=== PATIENT | male | born 1930 | race Caucasian/White ===

== ENCOUNTER 2017-01-28 08:43 | Outpatient (CLI) | payer MEDICARE ==
--- NOTE | 2017-01-28 09:36 | RAD ---
CHEST: Date: 01/28/17 COMPARISON: 07/22/16. HISTORY: Dyspnea. FINDINGS: Normal sized cardiomediastinal silhouette. Patient is status post CABG. Pacemaker is unchanged in po sition. No evidence of consolidation, mass, or pleural effusion. IMPRESSION: No evidence of acute cardiopulmonary disease. POS: H
== END 2017-01-28 08:44 | disposition home or self-care (01) ==
LOC: RAD 08:43
PROVIDERS: ATTEND Internal Medicine Critical Care Medicine
DX: R06.00 Dyspnea, unspecified (principal)
CPT/HCPCS: 71020

== ENCOUNTER 2017-06-09 13:23 | Inpatient (IN) | payer MEDICARE ==
[2017-06-09 14:08] LABS: #Basophils 0.1 thou/uL (0.0-0.2); #Eosinphils 0.1 thou/uL (0.0-0.7); #Lymphocytes 2.8 thou/uL (1.20-3.40); #Monocytes 0.7 thou/uL (0.11-0.59); #Neutrophils 4.4 thou/uL (1.40-6.50); %Basophils 0.9 % (0.0-1.0); %Eosinophils 1.3 % (0.0-10.0); %Lymphocytes 34.8 % (21.0-51.0); %Monocytes 8.1 % (0.0-10.0); %Neutrophils 54.9 % (42.0-75.0); Hemoglobin 12.4 g/dL (14.0-18.0); Mean Corpuscular HGB CONC 33.9 g/dL (32.0-36.0); Mean Corpuscular Hemoglobin 33.3 pg (27.0-31.0); Mean Corpuscular Volume 98.4 fl (80.0-94.0); Mean Platelet Volume 6.4 fL (7.4-10.4); Platelet Count 197 thou/uL (130-400); RBC Distribution Width 13.4 % (11.5-14.5); Red Blood Cell (RBC) Count 3.73 mill/uL (4.70-6.10)
[2017-06-09 14:40] LABS: ALT (SGPT) 9 U/L (8-55); AST (SGOT) 23 U/L (5-34); Albumin 4.2 g/dL (3.4-4.8); Alkaline Phosphatase 125 U/L (40-150); Anion Gap 16 mmol/L (10-20); BUN (Urea Nitrogen) 23 mg/dL (8.4-25.7); Bilirubin, Total 0.7 mg/dL (0.2-1.2); Calc. Creatinine Clearance 0 mL/min (70-130); Calcium 9.8 mg/dL (7.8-10.44); Carbon Dioxide 24 mmol/L (23-31); Chloride 94 mmol/L (98-107); Estimated GFR-MDRD 56; Globulin 3.2 g/dL (2.4-3.5); Glucose 99 mg/dL (83-110); Potassium 4.2 mmol/L (3.5-5.1); Protein, Total 7.4 g/dL (5.8-8.1); Sodium 130 mmol/L (136-145)
[2017-06-09 14:45] LABS: CKMB 3.3 ng/mL (0-6.6); Troponin I Less than 0.010 ng/mL (< 0.028)
[2017-06-09 16:55] VITALS: BMI 21.2
[2017-06-09] MEDS ORDERED: Famotidine 20 MG TAB PO SCH (23:45)
[2017-06-10 05:37] LABS: Hemoglobin 11.4 g/dL (14.0-18.0)
[2017-06-10 05:57] LABS: Anion Gap 12 mmol/L (10-20); BUN (Urea Nitrogen) 18 mg/dL (8.4-25.7); Calc. Creatinine Clearance 46 mL/min (70-130); Carbon Dioxide 23 mmol/L (23-31); Chloride 102 mmol/L (98-107); Estimated GFR-MDRD 66; Glucose 93 mg/dL (83-110); Potassium 3.8 mmol/L (3.5-5.1); Sodium 133 mmol/L (136-145)
--- NOTE | 2017-06-10 06:23 | CON ---
DATE OF CONSULTATION: 06/09/2017 REFERRING PHYSICIAN: Dr. Sami Rutledge. REASON FOR CONSULTATION: Dyspepsia, indigestion, nausea, weakness, and also history of dark stool. HISTORY OF PRESENT ILLNESS: Mr. Brennon Bustos is a very pleasant 86-year-old male who is known to me from before. The patient had seen me in 2016 and he has also history of anemia, black tarry stool. He was on Eliquis at that time. At that time, his blood count was very low at 5.9, hematocrit 19. He was transfused. 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 He had a colonoscopy that revealed diffuse chronic diverticular disease without any bleeding. It was felt the bleeding is most likely from upper gastrointestinal tract and is having actual bleeding at that time. The patient has done very well for the last couple of years. The patient is on Eliquis twice a day and also on aspirin over the last few months. The patient felt sick to stomach and did not feel good for the last 3 days. He also felt sick to stomach. He had some nausea, indigestion, and also some labored breathing. He went to see Dr. Sami Rutledge today. A rectal exam done in Dr. Rutledge's office showed dark stool and the stool guaiac came back positive. He was advised to come to the ER. He has CBC done in the ER, the CBC shows mild anemia. The hemoglobin today is 12.4. The patient had no stool today and he had one stool yesterday and stool was darker than usual. It was not black and tarry. The patient had no stool today. The patient has no chest pain, no dyspnea, orthopnea, PND. He has had no other relevant symptoms. ALLERGIES: CIPRO. SOCIAL HISTORY: He is a past smoker. He smoked in 1992. He drinks alcohol occasionally, maybe once or twice a month. MEDICAL ILLNESSES: 1. Myocardial infarction in 1982. 2. Status post coronary artery bypass graft. 3. Chronic obstructive pulmonary disease. 4. Hyperlipidemia. 5. Atrial fibrillation, status post AICD placed. 6. 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 7. Bleeding AVM stomach in 2016. SURGERIES: 1. Status post coronary artery bypass graft in 1992. 2. Status post AICD placement in 2006. 3. Bilateral hernia repair. 4. Status post AAA repair in 2016, after EGD and colonoscopy in 2016. MEDICATIONS: List reviewed. He is on Eliquis, aspirin, Zetia, lisinopril, Coreg, potassium citrate, furosemide, atorvastatin. REVIEW OF SYSTEMS: Remarkable for dyspepsia, some upset stomach, nausea, indigestion and not feeling good and also had some black stool. Otherwise, system review is unremarkable. PHYSICAL EXAMINATION: GENERAL: Very pleasant male who appears comfortable. He is awake, alert, oriented to time, place, and person. VITAL SIGNS: Stable. He is afebrile, temperature 97.3 degrees Fahrenheit. Pulse is 80, blood pressure 119/59. HEENT: Conjunctivae clear. NECK: Supple. No adenitis or thyromegaly noted. CARDIOVASCULAR: First and second heart sounds normal. LUNGS: Clear to auscultation. ABDOMEN: Soft to palpate. Abdomen is nontender. Abdomen is nondistended. There are no organomegaly or masses. Bowel sounds normal. EXTREMITIES: Reveal no edema. LABORATORY: Shows WBC 8000, hemoglobin 12.4, hematocrit 36.7, MCV 98.4, platelet count 197,000, polymorphs 54, lymphocytes 34. Serum chemistries show sodium 130, potassium 4.2, chloride 94, bicarbonate 24, BUN is 23, creatinine is 1.22, glucose is 99, calcium 9.8, bilirubin 0.7. AST 23, ALT 9, alkaline phosphatase 125. CPK 3.3, troponin less than 0.01. His total protein is 7.4, albumin 4.2, globulin 3.2. CLINICAL IMPRESSION: An 86-year-old male with history of dark stool and also feeling upset stomach, indigestion, nausea etc. The patient had similar episodes in 2016 was found to have bleeding gastric AVM. He had a colonoscopy, which was negative for any pathology except for diffuse colonic diverticular disease. The patient had no stool today and the stool was dark in Dr Rutledge's office. Based on available information, he mostly has some bleeding which appears to be mild as blood count is near normal at 12.4. RECOMMENDATIONS: 1. Empiric PPI therapy. 2. We will plan for EGD tomorrow or possibly Wednesday, because he is on Eliquis. 3. We will follow the electrolytes and hopefully we can perform EGD probably today or tomorrow. In the meantime, we would recommend serial H&H, MTDD
--- NOTE | 2017-06-10 09:18 | HP ---
DATE OF ADMISSION: 06/09/2017 CHIEF COMPLAINT: Abdominal pain, nausea, lightheadedness. HISTORY OF PRESENT ILLNESS: This is an 86-year-old gentleman with a history of a GI bleed in 2016 se condary to AVM and anticoagulation, history of coronary artery disease status post coronary bypass gr aft, history of atrial fibrillation, history of pulmonary fibrosis, history of aneurysms presented to my office on the day of admission with complaints of nausea, upset stomach and dizziness. He was ev aluated in the office, he was not hypotensive or tachycardic, but did look uncomfortable. Due to his history of his GI bleed, stool guaiac test was done, which was positive for blood and was sent to [facility] emergency department for further evaluation. He was not significantly anemic as he was in 2016, wa s seen by Dr. Moore who agreed with admission and planned endoscopy. PAST MEDICAL HISTORY: 1. History of [place] in 1982. 2. History of coronary bypass graft in 1992. 3. COPD and pulmonary fibrosis, followed by Dr. Ross. 4. Paroxysmal atrial fibrillation, followed by Dr. Layne. 5. Hyperlipidemia. 6. Ischemic cardiomyopathy. 7. Status post ICD placement. 8. Status post aortic aneurysm repair. 9. History of thoracic aneurysm. 10. History of chronic renal failure. PAST SURGICAL HISTORY: Includes ICD placement, aortic aneurysm repair, EGD and colonoscopy in 2016, coronary bypass graft, inguinal hernia repair x2. MEDICATIONS: See chart for review. He has been on Eliquis daily and recently started back on low do se aspirin by Cardiology, carvedilol 3.125 mg daily, atorvastatin 80 mg daily, and furosemide as need ed. SOCIAL HISTORY: No alcohol. Quit smoking many years ago. Lives at home alone with family nearby. REVIEW OF SYSTEMS: As per the history of present illness. GENERAL: He denies any recent fevers or chills. He does have increased weakness and some dizziness. HEENT: No falls. CARDIAC: No chest pain, shortness of breath or palpitations. PULMONARY: Occasional shortness of breath with dyspnea on exertion. GASTROINTESTINAL: Positive upset stomach. No melena or hematochezia. GENITOURINARY: No dysuria or hematuria. NEUROLOGIC: Some dizziness, no falls, no seizures. PHYSICAL EXAMINATION: VITAL SIGNS: Temperature 98.4, pulse of 71, respirations 18, blood pressure 123/57, pulse ox 93%-94% on room air. GENERAL: He is awake and alert in no acute distress. Speech is clear. Mucosa is moist. NECK: Supple. HEART: Regular rate and rhythm with a 2/6 systolic ejection murmur. LUNGS: Decreased breath sounds, but no wheeze, rales or rhonchi. ABDOMEN: Positive bowel sounds, soft, some epigastric tenderness, but no rebound or guarding. No he patosplenomegaly. EXTREMITIES: No clubbing, cyanosis or edema, 2+ peripheral pulses bilaterally. NEUROLOGIC: Cranial nerves II-XII are grossly intact. LABORATORY DATA: Sodium 133, potassium 3.8, chloride 102, CO2 of 23, BUN and creatinine 18 and 1.06. Serum glucose of 93. AST and ALT are normal. Cardiac enzymes are negative. White blood cell coun t 8.0 thousand, hemoglobin and hematocrit 12.14/36.7 yesterday and 11.4 and 33.6 today, platelets of 197. ASSESSMENT: This is an 86-year-old gentleman with multiple medical problems as described above, now with lightheadedness, guaiac-positive stool with a history of gastrointestinal bleed one and a half y ears ago. PLAN: 1. Agree with admission. Continue proton pump inhibitors. Dr. Moore planning at least an EGD h opefully today. If the patient remains stable, possibly discharge later on today or tomorrow if his hemoglobin hematocrit remained stable. 2. Coronary artery disease, ischemic cardiomyopathy. We will continue his medicines, hold his antic oagulation until cleared by Dr. Moore. We will likely have to stop the aspirin and continue the Eliquis if okay with Dr. Layne. 3. Hypertension is stable. We will hold his antihypertensives at this time. 4. Chronic obstructive pulmonary disease, pulmonary fibrosis is stable as well.
[2017-06-10] MEDS: Famotidine 20 MG TAB PO SCH ×2 (10:00→20:18)
[2017-06-11 05:09] LABS: Hemoglobin 11.2 g/dL (14.0-18.0)
[2017-06-11] MEDS ORDERED: PHENYLEPHRINE-NS 100 MCG/ML 10 ML SYRINGE ONE ×2 (07:59→08:31)
[2017-06-11 08:31] VITALS: BP 106/53; TEMP 96.7
[2017-06-11] MEDS ORDERED: Lidocaine 1% PF 5 ML VIAL ONE (08:31)
[2017-06-11] MEDS ORDERED: PROPOFOL 200 MG/20 ML VIAL ONE (08:31)
--- NOTE | 2017-06-11 08:43 | OP ---
DATE OF PROCEDURE: 06/11/2017 SURGEON: Hilda Moore M.D. OPERATIVE PROCEDURE: 1. Esophagogastroduodenoscopy. 2. 7 Norwegian heater probe therapy of gastric arteriovenous malformation. PREOPERATIVE DIAGNOSES: 1. Melena, anemia due to blood loss. 2. Past history of gastrointestinal bleeding in 2016. PROCEDURE IN DETAIL: The patient was placed on his left lateral position and was given sedation by A nesthesia Department. A Pentax video gastroscope under direct vision was passed down the oropharynx, past the GE junction, into stomach and subsequently descending duodenum. The esophageal mucosa appe ars normal. The GE junction, no pathology seen. Retroflexion failed to show in the fundus or cardia . Over the gastric body the patient was found to have some gastric AVM. It was found bleeding. In the gastric body, incisura angularis, gastric antrum, no pathology seen. The scope advanced into the duodenal bulb, descending duodenum. No pathology seen. The scope was carefully withdrawn back into stomach and the gastric AVM cauterized with 7 Norwegian heater probe with good hemostasis. The stomach was decompressed and the scope removed. RECOMMENDATIONS: 1. Discontinue n.p.o. 1. Heart healthy diet. 2. May be discharged home later today.
[2017-06-11] MEDS: Famotidine 20 MG TAB PO SCH (09:02)
--- NOTE | 2017-06-12 13:25 | EKG ---
Test Reason : Blood Pressure : / mmHG Vent. Rate : 075 BPM Atrial Rate : 086 BPM P-R Int : 000 ms QRS Dur : 156 ms QT Int : 412 ms P-R-T Axes : 068 -28 099 degrees QTc Int : 460 ms Ventricular-paced rhythm Abnormal ECG Confirmed by JU SUAREZ MD ([id number]), makeup editor ABBI SHIPLEY ([id number]) on 06/12/2017 1:25:13 PM Referred By: Confirmed By:JU SUAREZ MD
--- NOTE | 2017-06-14 12:46 | DIS ---
DATE OF ADMISSION: 06/10/2017 DATE OF DISCHARGE: 06/11/2017 ADMISSION DIAGNOSES: Rule out gastrointestinal bleed, lightheadedness, guaiac positive stool. DISCHARGE DIAGNOSES: Anemia, dizziness, resolved. CONSULTATIONS: Dr. Moore for GI. PROCEDURES: Upper endoscopy and heater probe therapy to gastric AVM. HOSPITAL COURSE: This is an 87-year-old gentleman with a history of GI bleed in 2016 secondary to an AVM and on anticoagulation. He has a history of coronary artery disease status post coronary artery bypass graft, history of atrial fibrillation, history of pulmonary fibrosis, and history of aneurysm s. He presented to my office with complaints of nausea, upset stomach and dizziness. In the office, he was not hypotensive, but did look uncomfortable due to his history of a GI bleed, a stool guaiac was done, which was positive for blood. He was sent to the emergency department for further evaluati on. On admission, he was not significantly anemic with a hemoglobin and hematocrit of 12 and 36.7 it did drop to 11.4 and 33.6 during his hospitalization. His symptoms improved slightly with IV fluid rehydration. He was seen by Dr. Moore in evaluation and agreed with his need for an upper endosc opy due to the melena and positive stool guaiac. It was discussed with the patient, he agreed with p erforming the EGD. He is continued on proton pump inhibitors. Due to the patient being on Eliquis, the endoscopy was planned for the following day. The patient underwent the endoscopy without complic ations, tolerated, being off the Eliquis for a day. The EGD did reveal a gastric AVM which was treat ed by Dr. Moore with cauterization with good hemostasis. The patient tolerated the procedure and Dr. Moore felt like the patient could be discharged home the following day following recovery. DISCHARGE MEDICATIONS: Include potassium citrate 10 mEq daily, atorvastatin 80 mg daily, Tylenol p.r .n., furosemide 40 mg daily, carvedilol 3.125 mg b.i.d., Eliquis once daily, Zetia 10 mg daily, lisin opril 2.5 mg daily. He is to restart the aspirin when okay with Dr. Moore. DISCHARGE PHYSICAL EXAMINATION: VITAL SIGNS: Temperature 96.7, pulse is 63, respirations 20, blood pressure 106/53, pulse oximetry i s 95% on room air. GENERAL: He is awake and alert, in no acute distress. Speech is clear. NECK: Supple. HEART: Regular rate and rhythm. LUNGS: Clear. ABDOMEN: Soft. EXTREMITIES: With no edema. DISCHARGE LABORATORY DATA: Hemoglobin and hematocrit 11.2 and 32.4. FOLLOWUP INSTRUCTIONS: The patient to follow up in my office in 1-2 weeks. Follow up with Dr. Emi berg in 2 weeks and with his ell teacher in 2-4 weeks.
--- NOTE | 2017-06-18 16:11 | PQF ---
JOSE SOMMER KUPPUSAMY MD [id number] [facility] [id number] CLINICAL DOCUMENTATION CLARIFICATION FORM: POST DISCHARGE Addendum to original discharge summary date: ____ Late entry note date: __ DATE: 06/15/17 ATTN: DR GARCIA Please exercise your independent, professional judgment in responding to the clarification form. Clinical indicators are provided on the bottom of this form for your review Please check appropriate box(s): [ ] Acute blood loss anemia [ ] Post-op anemia related to acute blood loss [ ] Anemia: [ ] Aplastic [ ] Nutritional [ ] Drug induced (specify) ___ [ ] Hemolytic [ ] Hereditary [ ] Acquired [ ] Autoimmune [ ] Non-autoimmune [ ] Enzyme disorder [ ] Chronic Anemia: [ ] Blood loss [ ] Hemolytic [ ] Simple [ ] Due to Vitamin B12 Deficiency [ ] Other [ ] Anemia of Chronic Disease (please specify) [ ] Anemia due to Neoplasm: [ ] Primary [ ] Secondary [ ] Anemia due to (please choose): [ ] Due to Chemotherapy [ ] Due to Radiotherapy [ ] Due to Immunotherapy [ ] Other diagnosis [ ] Unable to determine In addition, please specify: Present on Admission (POA): [ ] Yes [ ] No [ ] Unable to determine For continuity of documentation, please document condition throughout progress notes and discharge summary. Thank You. CLINICAL INDICATORS - SIGNS / SYMPTOMS / LABS Anemia dark stool nausea. vomiting RISK FACTORS Surgery AVM Melena/Hematochezia Documented anemia due to blood loss. ALONDRAD
== END 2017-06-11 11:08 | disposition home or self-care (01) | DRG 379 ==
LOC: ERS 13:23 → 2SW 14:15 → OBSVTOIN 06-10 21:29
PROVIDERS: ADMIT Family Medicine; ATTEND Family Medicine
PROC: 0W3P8ZZ Control Bleeding in Gastrointestinal Tract, Via Natural or Artificial Opening Endoscopic (ICD-10-PCS; principal; 2017-06-11)
DX: K55.21 Angiodysplasia of colon with hemorrhage (principal); I48.0 Paroxysmal atrial fibrillation; J84.10 Pulmonary fibrosis, unspecified; J44.9 Chronic obstructive pulmonary disease, unspecified; Z95.1 Presence of aortocoronary bypass graft; I25.10 Atherosclerotic heart disease of native coronary artery without angina pectoris; Z79.01 Long term (current) use of anticoagulants; I25.2 Old myocardial infarction; E78.5 Hyperlipidemia, unspecified; I25.5 Ischemic cardiomyopathy; Z95.810 Presence of automatic (implantable) cardiac defibrillator; Z79.82 Long term (current) use of aspirin; Z87.891 Personal history of nicotine dependence; I10 Essential (primary) hypertension; K57.30 Diverticulosis of large intestine without perforation or abscess without bleeding; Z88.1 Allergy status to other antibiotic agents
CPT/HCPCS: 36415; 80048; 80053; 82274; 82553; 84484; 85014; 85018; 85025; 93005; 99214; G0463; J2001; J2704

== ENCOUNTER 2017-07-28 09:21 | Outpatient (CLI) | payer MEDICARE ==
--- NOTE | 2017-07-28 11:41 | RAD ---
RADIOGRAPH CHEST 2 VIEWS: Date: 07-28-17 Time: 9:28 a.m. HISTORY: 87-year-old male with dyspnea. COMPARISON: 04-30-16 FINDINGS: Sternotomy wires. Surgical clips along the left mediastinal and left cardiac border. Left subclavian AICD. Hypoinflation of lungs. Diffuse reticular nodular interstitial densities, chronic. No consolida tion, pulmonary vascular engorgement, pulmonary edema, pleural effusion or pneumothorax. No interval change overall. Colonic interposition. IMPRESSION: 1. Hypoinflation and chronic interstitial changes. 2. Status post coronary artery bypass graft surgery is evidence for coronary atherosclerotic disease. ICD-10: I25.10 3. Automatic implantable cardioverter/defibrillator. 4. No acute findings. LENORE POS: [place]
== END 2017-07-28 09:22 | disposition home or self-care (01) ==
LOC: RAD 09:21
PROVIDERS: ATTEND Internal Medicine Critical Care Medicine
DX: R06.00 Dyspnea, unspecified (principal); J98.4 Other disorders of lung; I25.10 Atherosclerotic heart disease of native coronary artery without angina pectoris; Z95.1 Presence of aortocoronary bypass graft; Z95.810 Presence of automatic (implantable) cardiac defibrillator
CPT/HCPCS: 71046

== ENCOUNTER 2017-12-07 16:27 | Inpatient (IN) | payer MEDICARE ==
[2017-12-07 17:18] LABS: #Eosinphils 0.1 thou/uL (0.0-0.7); #Lymphocytes 1.3 thou/uL (1.20-3.40); #Monocytes 0.8 thou/uL (0.11-0.59); %Basophils 0.2 % (0.0-1.0); %Lymphocytes 18.1 % (21.0-51.0); %Monocytes 10.7 % (0.0-10.0); Hemoglobin 8.4 g/dL (14.0-18.0); Mean Corpuscular Hemoglobin 29.1 pg (27.0-31.0); Mean Corpuscular Volume 85.5 fL (78.0-98.0); Mean Platelet Volume 6.5 fL (7.4-10.4); Platelet Count 205 thou/uL (130-400); RBC Distribution Width 15.7 % (11.5-14.5); Red Blood Cell (RBC) Count 2.87 mill/uL (4.70-6.10); White Blood Cell (WBC) Count 7.2 thou/uL (4.8-10.8)
[2017-12-07 17:24] LABS: INR-International Normal Ratio 1.1; Prothrombin Time 14.5 SEC (12.0-14.7)
[2017-12-07 17:40] LABS: ALT (SGPT) 7 U/L (8-55); AST (SGOT) 18 U/L (5-34); Albumin 3.9 g/dL (3.4-4.8); Alkaline Phosphatase 136 U/L (40-150); Anion Gap 13 mmol/L (10-20); BUN (Urea Nitrogen) 36 mg/dL (8.4-25.7); Bilirubin, Total 0.6 mg/dL (0.2-1.2); Calc. Creatinine Clearance 0 mL/min (70-130); Calcium 9.4 mg/dL (7.8-10.44); Carbon Dioxide 21 mmol/L (23-31); Chloride 95 mmol/L (98-107); Estimated GFR-MDRD 35; Globulin 3.2 g/dL (2.4-3.5); Glucose 102 mg/dL (83-110); Potassium 4.2 mmol/L (3.5-5.1); Protein, Total 7.1 g/dL (5.8-8.1); Sodium 125 mmol/L (136-145)
[2017-12-07 21:01] LABS: Hemoglobin 8.8 g/dL (14.0-18.0)
[2017-12-07] MEDS ORDERED: Carvedilol 6.25 MG TAB PO SCH (22:15)
[2017-12-07] MEDS ORDERED: Ondansetron HCl/PF 4 MG/2 ML Vial IVP PRN (22:50)
[2017-12-07] MEDS ORDERED: Ondansetron ODT 4 MG TAB SL PRN (22:50)
[2017-12-07 22:56] VITALS: BMI 20.1
[2017-12-08 06:24] LABS: Hemoglobin 7.9 g/dL (14.0-18.0)
[2017-12-08] MEDS: Furosemide 20 MG/2 ML VIAL SLOW IVP SCH ×2 (13:15→16:45)
[2017-12-08] MEDS: Atorvastatin Calcium 40 MG TAB PO SCH (20:23)
[2017-12-08] MEDS: Carvedilol 3.125 MG TAB PO SCH (20:24)
--- NOTE | 2017-12-09 05:26 | CON ---
DATE OF CONSULTATION: 12/08/2017 REASON FOR CONSULTATION: Possible melena, history of upper GI bleeding. CONSULTING PHYSICIAN: Mark Keane M.D. 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 He states that he was in his usual state of health until approximately 5-7 days ago when he began to have increased shortness of breath, fatigue, and weakness that he had experienced previously upon episodes of GI bleeding. Recognizing these symptoms as possible GI bleeding he was seen by his primary care physician with routine labs showing a significant drop in his H &H when compared to baseline. He also endorses that over the last week he did have darker brown stools than usual, but denies any overtly black or diarrhea- like bowel movements. He usually has approximately 3-4 semi-solid to solid bowel movements per day, but over the last 3-4 days had been having approximately one semi-solid bowel movement per day, which was a change in his bowel habits. With this increased shortness of breath and darker colored stools , he did have an associated loss of appetite and has lost approximately 5 pounds over the last 1-2 months. Currently, he denies any vomiting, fevers, chills, abdominal pain, hematemesis, hematochezia, dysphagia, or odynophagia. Of note, he had similar symptoms 2 years ago and was evaluated with an EGD for possible upper GI bleed with arteriovenous malformation seen in his stomach that were treated with cauterization with good hemostasis achieved. His last upper endoscopy was in 06/2017, which also showed arteriovenous malformations within the gastric body further contributing to his anemia that were cauterized with bipolar cauterization. REVIEW OF SYSTEMS: A 10-category review of systems was obtained with all responses negative except for the pertinent positives as listed in the HPI. PAST MEDICAL HISTORY: As per HPI. PAST SURGICAL HISTORY: Coronary artery bypass graft in 1992, status post AICD placement in 2006, bilateral hernia repair and AAA repair in 2016. SOCIAL HISTORY: Denies any tobacco or illicit drug use. Does drink approximately 1-2 beers maybe once or twice a month. OUTPATIENT MEDICATIONS: Reviewed and is currently taking both aspirin and Eliquis for his atrial fibrillation. ALLERGIES: CIPRO. PHYSICAL EXAMINATION: VITAL SIGNS: Temperature 98.5, pulse 92, blood pressure 114/59, respiratory rate 20, satting 94% on room air. GENERAL: The patient is lying in bed in no acute distress. Alert and oriented x4. HEENT: Neck supple. No JVD noted. CARDIOVASCULAR: Irregularly irregular rhythm with no discernible murmurs, gallops or rubs. LUNGS: Clear to auscultation bilaterally with no discernible wheezes or rales. ABDOMEN: Normoactive bowel sounds, soft, nontender, nondistended. EXTREMITIES: No cyanosis, clubbing or edema. LABORATORY DATA: CBC with a white blood cell count of 7.2, hemoglobin 7.9, hematocrit 23.8, platelets 205. INR 1.1. Chemistry with a sodium of 125, potassium 4.2, chloride 95, CO2 of 21, BUN 36, creatinine 1.86, glucose 102, AST 18, ALT 7, alkaline phosphatase 136, total bilirubin 0.6. IMAGING DATA: No current GI imaging is available for review. ASSESSMENT AND PLAN: The patient is an 87-year-old male with past medical history of myocardial infarction, coronary artery disease, congestive heart failure, abdominal aortic aneurysm status post repair, atrial fibrillation on anticoagulation with Eliquis and aspirin and recurrent gastrointestinal bleeds secondary to arteriovenous malformations presenting with increased fatigue, shortness of breath, decreased H&H and darker colored stools concerning for an upper gastrointestinal bleed. Upper gastrointestinal bleed. The patient is presenting with increased shortness of breath, fatigue, weakness, and darker colored stools that were previously documented during episodes of upper gastrointestinal bleeding in the past. His most recent upper endoscopy was approximately 6 months ago performed by Dr. Moore, which showed a bleeding gastric arteriovenous malformation that was successfully intervened upon with bipolar cautery. Given the similar presenting symptoms on this admission as well as an elevated BUN to creatinine ratio and upper GI bleeding source seems more likely. RECOMMENDATIONS: 1. Would make patient n.p.o. at midnight in anticipation for procedures in the morning. 2. We will plan for an EGD for evaluation of the upper GI tract and possible treatment of any bleeding source. 3. We will continue to trend H&H and transfuse as necessary to maintain an H&H of 7/21. 4. We will continue to monitor clinically for signs of GI bleeding. 5. Given his multiple recurrent GI bleeds in the past, reconsideration of the clinical necessity for chronic anticoagulation for his atrial fibrillation should be contemplated. We will continue to follow. Please call with any additional questions. ROBBIE
[2017-12-09 06:47] LABS: Hemoglobin 11.1 g/dL (14.0-18.0)
[2017-12-09] MEDS: Carvedilol 3.125 MG TAB PO SCH ×2 (09:23→19:59)
[2017-12-09] MEDS ORDERED: Lidocaine Viscous Sol 2% 15 ml UD Cup ONE (10:49)
--- NOTE | 2017-12-09 13:06 | OP ---
DATE OF SERVICE: 12/09/2017 SURGEON: Dr. Arturo Uribe PREOPERATIVE DIAGNOSES: 1. Anemia secondary to gastrointestinal blood loss. 2. Upper gastrointestinal bleed. PROCEDURE: After informed consent was obtained, the patient placed in left lateral decubitus positio n. Anesthesia administered per the Anesthesia Department. A forward viewing endoscope was inserted into esophagus under direct visualization with ease and passed to the second portion of the duodenum with ease. Second portion of the duodenum and duodenal bulb were normal except for 2 small arteriove nous malformations. These were treated with a 7 Kuwaiti BICAP probe with good hemostasis. The remain eric of the duodenal bulb was normal. The pylorus, antrum, body, fundus, and cardia were normal excep t for diffuse gastritis. Biopsies were taken from the gastric body and antrum. The esophagus was no rmal throughout. ASSESSMENT: 1. Diffuse nonerosive gastritis - status post biopsy. 2. Two small nonbleeding duodenal arteriovenous malformations - status post ablation with 7 [place]i B ICAP probe. RECOMMENDATIONS: 1. Continue proton pump inhibitor. 2. Patient probably has small bowel arteriovenous malformations not amenable to cauterization, may n eed to reconsider long-term anticoagulation versus performing outpatient capsule endoscopy to see if there are small bowel arteriovenous malformations.
[2017-12-09] MEDS ORDERED: PROPOFOL 200 MG/20 ML VIAL ONE (13:52)
[2017-12-09] MEDS: Lisinopril 2.5 MG TAB PO SCH (14:25)
[2017-12-09] MEDS: Furosemide 40 MG TAB PO SCH (14:25)
[2017-12-09] MEDS: Ezetimibe 10 MG TAB PO SCH (14:25)
[2017-12-09] MEDS ORDERED: Potassium Citrate 10 MEQ TAB PO SCH (14:30)
[2017-12-09] MEDS: Potassium Citrate 10 MEQ TAB PO SCH (15:41)
[2017-12-09] MEDS: Atorvastatin Calcium 40 MG TAB PO SCH (19:59)
[2017-12-09] MEDS: Acetaminophen 325 MG TAB PO PRN (20:00)
[2017-12-10] MEDS: Acetaminophen 325 MG TAB PO PRN (03:42)
[2017-12-10] MEDS: Potassium Citrate 10 MEQ TAB PO SCH (08:29)
[2017-12-10] MEDS: Furosemide 40 MG TAB PO SCH (08:29)
[2017-12-10] MEDS: Carvedilol 3.125 MG TAB PO SCH (08:29)
[2017-12-10] MEDS: Ezetimibe 10 MG TAB PO SCH (08:29)
[2017-12-10] MEDS: Lisinopril 2.5 MG TAB PO SCH (08:30)
--- NOTE | 2017-12-10 14:02 | HP ---
DATE OF ADMISSION: 12/07/2017 CHIEF COMPLAINT: Fatigue with melena. HISTORY OF PRESENT ILLNESS: This is an 87-year-old male patient of Dr. Elizalde with a k nown history of GI bleeds who was on anticoagulation for atrial fibrillation. He had a sudden onset of fatigue, shortness of breath with darker than normal melanotic stools approximately 3 days prior. The symptoms persisted, so he came to the emergency room for further evaluation. His findings in e emergency room where that his initial blood pressures are 96/50 with a pulse 83, afebrile, slightly tachypneic with respiratory is 22. His hemoglobin turned out to be 8.0. He also had some EKG cisneros es and his rate eventually went up to 120s to 130s. PAST MEDICAL HISTORY: Positive for atrial fibrillation, atherosclerotic coronary vascular disease, s tatus post IL, COPD, ischemic CHF, and a history of GI bleeds. PAST SURGICAL HISTORY: He had inguinal herniorrhaphy x2, also an abdominal herniorrhaphy. He had CA BG done in the past and also had a defibrillator placed and he had had AAA layer repair in 2014. ALLERGIES: CIPRO. CURRENT MEDICATIONS: He is on 81 mg aspirin, 5 mg of Eliquis once a day, he is on Coreg twice a day, he is on Lasix 40 mg daily, he is on potassium 10 mEq daily, he is on 80 mg of Lipitor daily, 2.5 mg of lisinopril daily, 10 mg of Zetia daily and he is on 40 mg of Protonix daily. SOCIAL HISTORY: No toxic use or toxic habits. He is a former smoker that quit more than 10 years ag o. 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 He is and has 5 children, one th at [facility]. REVIEW OF SYSTEMS: Other than in the HPI denies any headache or visual changes, no troubles chewing or swallowing. Denies any cough or hemoptysis. Denies any nausea, vomiting. Denies any changes in urinary habits. No dysuria. Had the melena as stated above, but no abdominal pain or cramping. Den ies any paresis or paresthesias. Denies any homicidal or suicidal ideations. No auditory or visual hallucinations. PHYSICAL EXAMINATION: VITAL SIGNS: Coming onto the floor, BP is 113/49, pulse 73, respiration is 20, satting 94% on room a ir, continued to be afebrile with a temperature of 98.9. HEENT: Essentially unremarkable other than mild pallor to the eyelid mucosa. Normocephalic and atra umatic cranium. Pupils are equal, round, and reactive to light and accommodation. Extraocular movem ents are intact. Mucosal membranes are moist, but yet pale. NECK: Supple, no JVD, no bruits, no thyromegaly. LUNGS: Clear to auscultation bilaterally. HEART: S1, S2, with a slightly irregular rhythm times more likely affected by ventilation and inspir ation and expiration. ABDOMEN: Soft, nontender, nondistended. No hepatosplenomegaly, no palpable masses. Bowel sounds ar e normoactive. GENITOURINARY: Exam is deferred. EXTREMITIES: Show good palpable pulses in all four extremities. No cyanosis, clubbing, or edema. NEUROLOGIC: Alert and oriented x4. Very aware of his situation. Cranial nerves II-XII are equal an d symmetrical. There are no motor or sensory deficits. LABORATORY AND X-RAY FINDINGS: His initial white count is 7.2, red count at 2.87, hemoglobin 8.4, he matocrit 24.6, RDW is elevated at 15.7, platelet count 205,000. His INR is 1.1. Chemistries show sl ightly hyponatremic with a sodium of 125, potassium 4.2, chloride 95, bicarbonate 21, BUN 36, creatin ine 1.86, GFR is 35, glucose normal at 102. AST is normal at 18, ALT is slightly low, but normal at 7. All protein levels appear within range. ASSESSMENT: Suspected GI bleed with history of gastrointestinal bleed with symptomatic anemia with m ild hyponatremia. PLAN: We will transfuse him and consult gastroenterology for further evaluation.
--- NOTE | 2017-12-10 14:19 | DIS ---
DATE OF ADMISSION: 12/07/2017 DATE OF DISCHARGE: 12/10/2017 ADMITTING DIAGNOSES: Symptomatic anemia with suspected gastrointestinal bleed. DISCHARGE DIAGNOSES: Upper gastrointestinal bleed with gastritis and multiple arteriovenous malforma tions. CONSULTATIONS: Gastroenterology. PROCEDURE: He had an EGD and colonoscopy. Findings are diffuse gastritis with multiple AVMs, severa l bleeding in the stomach. He had those cauterized which resolved the bleeding, also found to have n onbleeding polyps in the colon. HOSPITAL COURSE: The patient is an 87-year-old male patient of Dr. Clark Rutledge who came in due to 3-day of acute onset fatigue, shortness of breath and darker than normal melanotic type st ools, was found in the ER to have a hemoglobin down in the low 8, slightly tachypneic and eventually a little tachycardic, so he was put in the hospital for further evaluation and rehydration and transf usion. He had been scoped in the past year and they found previous GI bleeding and also colon polyps . So, he was rescoped this admission and the stomach was more irritated and AVMs that were bleeding were cauterized. His hemoglobin after transfusion was 11 and the following day was 11.1, so he is ma intaining his hemoglobin at that point. So the day of discharge, he is without symptoms. Feels back to his normal himself, so the plan is to discharge to home. The worry is on his anticoagulation. H e will stop all NSAIDs including the baby aspirin and he will just be on the Eliquis. We will resume other home meds including the Protonix. He might even have to do a double dose of Protonix for a fe w weeks. He will need to follow up with Dr. Layne in 1-2 weeks to discuss other possibilities for treatment of his atrial fibrillation including the Watchman procedure since he is having the AVM ble eding issues from anticoagulation that is needed. He also will need to follow up with Dr. Moore of Gastroenterology. He already has an appointment scheduled with his PCP, Dr. Rutledge on 8.
[2017-12-10 14:33] VITALS: BP 113/53; TEMP 97.5
== END 2017-12-10 15:00 | disposition home or self-care (01) | DRG 378 ==
LOC: ERS 16:27 → T4-B 21:44 → ERHOLD 21:49 → 2NO 22:46
PROVIDERS: ADMIT Family Medicine; ATTEND Family Medicine
PROC: 0W3P8ZZ Control Bleeding in Gastrointestinal Tract, Via Natural or Artificial Opening Endoscopic (ICD-10-PCS; principal; 2017-12-09)
PROC: 0DB68ZX Excision of Stomach, Via Natural or Artificial Opening Endoscopic, Diagnostic (ICD-10-PCS; 2017-12-09)
PROC: 30233N1 Transfusion of Nonautologous Red Blood Cells into Peripheral Vein, Percutaneous Approach (ICD-10-PCS; 2017-12-09)
DX: K31.811 Angiodysplasia of stomach and duodenum with bleeding (principal); E87.1 Hypo-osmolality and hyponatremia; D62 Acute posthemorrhagic anemia; N17.9 Acute kidney failure, unspecified; I48.91 Unspecified atrial fibrillation; Z79.01 Long term (current) use of anticoagulants; I25.10 Atherosclerotic heart disease of native coronary artery without angina pectoris; I25.2 Old myocardial infarction; J44.9 Chronic obstructive pulmonary disease, unspecified; Z95.1 Presence of aortocoronary bypass graft; Z88.1 Allergy status to other antibiotic agents; Z79.82 Long term (current) use of aspirin; Z87.891 Personal history of nicotine dependence; K29.70 Gastritis, unspecified, without bleeding; R00.0 Tachycardia, unspecified
CPT/HCPCS: 36415; 36430; 80053; 82274; 85014; 85018; 85610; 85730; 86850; 86900; 86901; 88305; 88312; 93005; A4216; J1940; J2704; P9016

== ENCOUNTER 2018-01-01 04:53 | Emergency (ER) | payer MEDICARE ==
[2018-01-01 05:37] LABS: #Eosinphils 0.1 thou/uL (0.0-0.7); #Lymphocytes 1.6 thou/uL (1.20-3.40); #Monocytes 0.9 thou/uL (0.11-0.59); #Neutrophils 4.7 thou/uL (1.40-6.50); %Basophils 0.5 % (0.0-1.0); %Lymphocytes 21.8 % (21.0-51.0); %Monocytes 12.3 % (0.0-10.0); %Neutrophils 63.4 % (42.0-75.0); Hemoglobin 10.7 g/dL (14.0-18.0); Mean Corpuscular HGB CONC 32.4 g/dL (32.0-36.0); Mean Corpuscular Hemoglobin 27.9 pg (27.0-31.0); Mean Corpuscular Volume 86.1 fL (78.0-98.0); Platelet Count 231 thou/uL (130-400); RBC Distribution Width 16.3 % (11.5-14.5); Red Blood Cell (RBC) Count 3.85 mill/uL (4.70-6.10); White Blood Cell (WBC) Count 7.3 thou/uL (4.8-10.8)
[2018-01-01 05:51] LABS: ALT (SGPT) 7 U/L (8-55); AST (SGOT) 24 U/L (5-34); Albumin 3.8 g/dL (3.4-4.8); Alkaline Phosphatase 209 U/L (40-150); Anion Gap 15 mmol/L (10-20); BUN (Urea Nitrogen) 28 mg/dL (8.4-25.7); Bilirubin, Total 0.7 mg/dL (0.2-1.2); CK (CPK) 99 U/L (30-200); Calc. Creatinine Clearance 0 mL/min (70-130); Calcium 9.3 mg/dL (7.8-10.44); Carbon Dioxide 22 mmol/L (23-31); Chloride 93 mmol/L (98-107); Estimated GFR-MDRD 38; Globulin 3.6 g/dL (2.4-3.5); Glucose 96 mg/dL (83-110); Lipase 21 U/L (8-78); Potassium 4.1 mmol/L (3.5-5.1); Protein, Total 7.4 g/dL (5.8-8.1); Sodium 126 mmol/L (136-145)
[2018-01-01 05:54] LABS: CKMB 2.7 ng/mL (0-6.6); Troponin I Less than 0.010 ng/mL (< 0.028)
[2018-01-01] MEDS ORDERED: traMADol HCl 50 MG TAB ONE (06:22)
--- NOTE | 2018-01-01 09:21 | RAD ---
PORTABLE AP CHEST XRAY: DATE: 01/01/18. HISTORY: Chest pain and left arm pain. COMPARISON: 07/28/17. FINDINGS: Left subclavian AICD device remains in place. Postsurgical changes related to CABG are again noted. There are mild increased interstitial densities at each lung base which may be related to mild chron ic lung changes. No consolidation or pleural fluid is appreciated. Vascular calcification is seen a t the thoracic aorta. No other interval change. IMPRESSION: Mild chronic lung changes, and the chest is overall stable from prior study. POS: [place]
== END 2018-01-01 06:36 | disposition home or self-care (01) ==
LOC: ERS 04:53
DX: M79.622 Pain in left upper arm (principal); M25.512 Pain in left shoulder; J44.9 Chronic obstructive pulmonary disease, unspecified; I25.2 Old myocardial infarction; Z87.891 Personal history of nicotine dependence
CPT/HCPCS: 71045; 80053; 82553; 83690; 84484; 85025; 93005

== ENCOUNTER 2018-03-08 08:57 | Outpatient (CLI) | payer MEDICARE ==
--- NOTE | 2018-03-08 12:26 | ULT ---
ULTRASOUND RETROPERITONEUM COMPLETE: (RENAL) Date: 03/08/18 HISTORY: 87-year-old male with acute renal failure. COMPARISON: None. FINDINGS: There is moderate to severe dilation of all of the right renal calices and right renal pelvis, and th e visualized portion of the proximal right ureter. The left renal pelvis is dilated, but there is little or no dilation of the left renal calices. The right kidney measures 9 x 5.5 x 5 cm. The left kidney measures 8.5 x 5.5 x 5 cm. There is a 0.3 cm hyperechoic focus in the parenchyma of the left renal mid pole, which could be a ti ny calcification, angiomyolipoma, or a segment of a blood vessel. There is an approximately 6.5 x 5.5 x 4 cm mass with lobulated margins and heterogeneous internal ech ogenicity, broadly protruding into the base of the bladder, consistent with an enlarged prostate glan d. The urinary bladder volume is approximately 90 mL prior to voiding, and approximately 50 mL after voi ding. IMPRESSION: 1. Severe right hydronephrosis is evidence for high grade right ureteral obstruction. 2. Enlarged prostate gland. 3. Poor bladder voiding. Code T JN R POS: Kar[facility]
== END 2018-03-08 08:58 | disposition home or self-care (01) ==
LOC: BICULT 08:57
PROVIDERS: ATTEND Internal Medicine Nephrology
DX: N17.9 Acute kidney failure, unspecified (principal); N40.0 Benign prostatic hyperplasia without lower urinary tract symptoms; N13.1 Hydronephrosis with ureteral stricture, not elsewhere classified; R39.14 Feeling of incomplete bladder emptying
CPT/HCPCS: 36415; 76770; 80048; 81001

== ENCOUNTER 2018-03-30 12:58 | Outpatient (CLI) | payer MEDICARE ==
--- NOTE | 2018-03-30 16:26 | CT ---
CT ABDOMEN AND PELVIS WITHOUT CONTRAST STONE PROTOCOL: Date: 03/30/18 HISTORY: N13.39, hydronephrosis. Flank pain. COMPARISON: Renal ultrasound dated 03/08/18. FINDINGS: There is subpleural reticulation with early honeycombing and traction bronchiectasis in both lower lo bes, as well as the lingula. There appear to be some round soft tissue masses within the lingula, as well as in the posterior segment of the left lower lobe. Asymmetric nodular density behind the right nipple is greater than behind the left nipple. Cholelithiasis is present. Severe right-sided hydronephrosis and hydroureter with what appears to be a large mass within the urinary bladder, difficult to fully appreciate without intravenous contrast. Prostate also appears to be enlarged. There is some tenting retraction of the right side of the urina ry bladder. Soft tissue mass appears to be involving the right pelvic side wall, as well as the right seminal ves icle. There is also some soft tissue involvement of the right obturator internus muscle. There appear to be numerous lytic foci throughout the sacrum, as well as the ilium bilaterally. Pelvic lytic foci are also appreciated. IMPRESSION: 1. Severe right-sided hydroureteronephrosis due to obstructing mass at the distal right ureter invol ving the urinary bladder, as well as the prostate and right seminal vesicle and pelvic side wall. Uro logic consultation is advised. No obstructing calculus. 2. Multifocal ectasia of the infrarenal abdominal aorta. 3. Multifocal nodules in the lung bases concerning for metastatic disease. 4. Asymmetric nodular density behind the right nipple, as well as the left, which may reflect underl natasha nodular gynecomastia versus less likely a mass. Mammogram may be beneficial. 5. Extensive lytic foci throughout the pelvis indicating osseous metastatic disease. The greatest me tastatic focus is in the left pubic body. CODE T. CODE LN. POS: CET
== END 2018-03-30 12:59 | disposition home or self-care (01) ==
LOC: SCSCT 12:58
PROVIDERS: ATTEND Urology
DX: N13.39 Other hydronephrosis (principal); Z12.5 Encounter for screening for malignant neoplasm of prostate; N13.1 Hydronephrosis with ureteral stricture, not elsewhere classified; I77.811 Abdominal aortic ectasia; R91.8 Other nonspecific abnormal finding of lung field; R92.2 Inconclusive mammogram
CPT/HCPCS: 36415; 74176; G0103

== ENCOUNTER 2018-04-15 10:51 | Outpatient (CLI) | payer MEDICARE ==
--- NOTE | 2018-04-15 15:22 | NM ---
NUCLEAR MEDICINE BONE SCAN: HISTORY: Secondary malignant neoplasm of genital organs. COMPARISON: CT from 03/30/2018. TECHNIQUE: Whole body imaging was obtained after the intravenous administration of 31 millicuries technetium 99m MDP. FINDINGS: There is extensive axial and appendicular metastatic disease. There is extensive involvement of the spine throughout the ribs and the pelvis. IMPRESSION: Severe extensive multifocal metastatic disease. POS: [facility]
== END 2018-04-15 10:52 | disposition home or self-care (01) ==
LOC: NM 10:51
PROVIDERS: ATTEND Urology
DX: C79.82 Secondary malignant neoplasm of genital organs (principal); C80.1 Malignant (primary) neoplasm, unspecified
CPT/HCPCS: 78306; A9503

== ENCOUNTER 2018-04-29 05:52 | Day surgery (SDC) | payer MEDICARE ==
[2018-04-28 13:37] VITALS: BMI 23.1
[2018-04-29 07:06] LABS: #Basophils 0.1 thou/uL (0.0-0.2); #Eosinphils 0.2 thou/uL (0.0-0.7); #Lymphocytes 2.2 thou/uL (1.20-3.40); #Monocytes 0.6 thou/uL (0.11-0.59); #Neutrophils 2.5 thou/uL (1.40-6.50); %Basophils 1.1 % (0.0-1.0); %Eosinophils 3.1 % (0.0-10.0); %Lymphocytes 40.1 % (21.0-51.0); %Monocytes 10.6 % (0.0-10.0); %Neutrophils 45.1 % (42.0-75.0); Mean Corpuscular HGB CONC 31.7 g/dL (32.0-36.0); Mean Corpuscular Hemoglobin 29.4 pg (27.0-31.0); Mean Corpuscular Volume 92.8 fL (78.0-98.0); Mean Platelet Volume 7.2 fL (7.4-10.4); Platelet Count 194 thou/uL (130-400); RBC Distribution Width 15.1 % (11.5-14.5); Red Blood Cell (RBC) Count 3.39 mill/uL (4.70-6.10); White Blood Cell (WBC) Count 5.5 thou/uL (4.8-10.8)
[2018-04-29 07:12] LABS: INR-International Normal Ratio 1.4; PTT 38.1 SEC (22.9-36.1); Prothrombin Time 17.2 SEC (12.0-14.7)
[2018-04-29] MEDS ORDERED: PROPOFOL 20 ML ONE ×2 (07:16→08:10)
[2018-04-29] MEDS ORDERED: PROPOFOL 200 MG/20 ML VIAL ONE (16:27)
--- NOTE | 2018-04-29 16:49 | ECHO ---
TRANSESOPHAGEAL ECHOCARDIOGRAM: DATE OF PROCEDURE: 04/29/18 INDICATION: 87-year-old gentleman with chronic atrial fibrillation and Watchman device. DESCRIPTION OF PROCEDURE: The patient was taken to the PACU. The patient was sedated by anesthesiology. A transesophageal probe was placed in the distal esophagus and stomach. Echocardiographic images were obtained. The transesophageal probe was removed. FINDINGS: 1. Severe decrease in left ventricular systolic function. 2. Left ventricle moderately dilated. 3. Left atrial enlargement. 4. Moderate mitral regurgitation. 5. Mild tricuspid regurgitation. 6. A 0.2 cm leak was noted around the Watchman device. 7. Defibrillator wire noted in right ventricle. 8. Atherosclerotic debris in descending aorta. IMPRESSION: 0.2 cm leak noted around the Watchman device.
--- NOTE | 2018-04-29 21:13 | EKG ---
Test Reason : PREOP Blood Pressure : / mmHG Vent. Rate : 066 BPM Atrial Rate : 066 BPM P-R Int : 158 ms QRS Dur : 162 ms QT Int : 478 ms P-R-T Axes : 038 -15 102 degrees QTc Int : 501 ms electronic pacemaker. When compared with ECG of 01-JAN-2018 05:03, Vent. rate has decreased BY 20 BPM Confirmed by Nick MARRUFO ([id number]) on 04/29/2018 9:13:24 PM Referred By: MARLENY Confirmed By:Nick MARRUFO
== END 2018-04-29 09:43 | disposition home or self-care (01) ==
LOC: CCL 05:52
PROVIDERS: ATTEND Internal Medicine Cardiovascular Disease
PROC: B24BZZ4 Ultrasonography of Heart with Aorta, Transesophageal (ICD-10-PCS; principal; 2018-04-29)
DX: I48.2 Chronic atrial fibrillation (principal); I70.0 Atherosclerosis of aorta; I08.1 Rheumatic disorders of both mitral and tricuspid valves; Z79.01 Long term (current) use of anticoagulants; Z79.899 Other long term (current) drug therapy; Z88.1 Allergy status to other antibiotic agents; Z95.1 Presence of aortocoronary bypass graft; Z95.810 Presence of automatic (implantable) cardiac defibrillator; Z95.818 Presence of other cardiac implants and grafts
CPT/HCPCS: 85025; 85610; 85730; 93005; 93010; 93312; J2704

== ENCOUNTER 2018-05-02 08:19 | Outpatient (CLI) | payer MEDICARE ==
--- NOTE | 2018-05-02 11:00 | CT ---
CT OF CHEST PERFORMED WITHOUT CONTRAST ENHANCEMENT: History: Prostate cancer. Secondary malignant neoplasm of bone. Recent CT of the abdomen which shows suspicious nodules in the lung bases. Comparison: Bone scan of 04-25-18, CT abdomen/pelvis of 03-30-18. FINDINGS: Lungs show severe chronic interstitial fibrotic lung change. There is evidence for honeycombing. The nodule densities that were noted in the previous CT of the abdomen and pelvis are significantly l ess prominent on today's examination. The best examples are left lower lobe nodule seen on axial imag e 39 which corresponded to an 11 mm pulmonary nodule in the prior examination. On today's examination there is a vague 8-9 mm ground glass area of nodularity. Directly superior to this on the previous e xamination was also a peripheral nodule which was seen on the current exam on axial image 37 and it i s just a vague part of the chronic lung change. An additional example is a lingular density seen on a xial image 33 which is now a 6-7 mm area of nodularity where before it was 11 mm in size. There are s ome other nodular areas seen on the previous CT in the lung bases which are not even perceptible on t lucille's study. It maybe that these were part of some sort of acute infiltrative process. I am not cert ain if the patient has had any type of intervening therapy. I do not appreciate any significant mediastinal or hilar adenopathy on this noncontrast study. No sig nificant axillary adenopathy. The visualized liver parenchyma shows no focal findings. A gallstone is incidentally seen. Bony metastatic disease again noted as seen on previous bone scan. No evidence for any pathologic fra cture. Somewhat mixed lytic and sclerotic bony changes are seen. IMPRESSION: 1. Severe interstitial fibrotic lung change with evidence for honeycombing. 2. The nodule density seen in the lung bases on the previous CT abdomen and pelvis are much less prom inent and really even difficult to characterize as nodules on the current study and may have been par t of some type of acute infiltrative process on the prior examination. 2. Bony metastatic disease. 3. Gallstones. POS: [facility]
== END 2018-05-02 08:20 | disposition home or self-care (01) ==
LOC: SCSCT 08:19
PROVIDERS: ATTEND Internal Medicine Hematology & Oncology
DX: C61 Malignant neoplasm of prostate (principal); C79.51 Secondary malignant neoplasm of bone; N18.9 Chronic kidney disease, unspecified; K80.20 Calculus of gallbladder without cholecystitis without obstruction; J98.4 Other disorders of lung
CPT/HCPCS: 71250

== ENCOUNTER 2018-06-28 15:26 | Inpatient (IN) | payer MEDICARE ==
[2018-06-28 15:55] LABS: #Basophils 0.1 thou/uL (0.0-0.2); #Eosinphils 0.2 thou/uL (0.0-0.7); #Lymphocytes 1.8 thou/uL (1.20-3.40); #Monocytes 0.7 thou/uL (0.11-0.59); #Neutrophils 3.5 thou/uL (1.40-6.50); %Basophils 1.5 % (0.0-1.0); %Eosinophils 2.6 % (0.0-10.0); %Lymphocytes 28.3 % (21.0-51.0); %Monocytes 11.7 % (0.0-10.0); Hemoglobin 9.7 g/dL (14.0-18.0); Mean Corpuscular HGB CONC 31.6 g/dL (32.0-36.0); Mean Corpuscular Hemoglobin 27.3 pg (27.0-31.0); Mean Corpuscular Volume 86.4 fL (78.0-98.0); Mean Platelet Volume 6.1 fL (7.4-10.4); Platelet Count 225 thou/uL (130-400); RBC Distribution Width 15.6 % (11.5-14.5); Red Blood Cell (RBC) Count 3.54 mill/uL (4.70-6.10); White Blood Cell (WBC) Count 6.2 thou/uL (4.8-10.8)
[2018-06-28 16:11] LABS: ALT (SGPT) 48 U/L (8-55); AST (SGOT) 74 U/L (5-34); Albumin 3.1 g/dL (3.4-4.8); Alkaline Phosphatase 108 U/L (40-150); Anion Gap 14 mmol/L (10-20); BUN (Urea Nitrogen) 21 mg/dL (8.4-25.7); Bilirubin, Total 0.7 mg/dL (0.2-1.2); CK (CPK) 450 U/L (30-200); Calc. Creatinine Clearance 0 mL/min (70-130); Calcium 7.9 mg/dL (7.8-10.44); Carbon Dioxide 21 mmol/L (23-31); Chloride 100 mmol/L (98-107); Estimated GFR-MDRD 62; Globulin 3.1 g/dL (2.4-3.5); Glucose 82 mg/dL (83-110); Lipase 16 U/L (8-78); Potassium 3.1 mmol/L (3.5-5.1); Protein, Total 6.2 g/dL (5.8-8.1); Sodium 132 mmol/L (136-145)
[2018-06-28] MEDS ORDERED: Aspirin 325 MG TAB ONE (16:28)
[2018-06-28] MEDS ORDERED: Furosemide 20 MG/2 ML VIAL ONE ×2 (16:28)
--- NOTE | 2018-06-28 16:33 | RAD ---
PORTABLE CHEST 1 VIEW: DATE: 06/28/2018. TIME: 4:08 p.m. HISTORY: Dyspnea. FINDINGS: Comparison is made with the exam of 01/01/2018. Changes of median sternotomy are again seen. Left-sided AICD remains in place. The heart size is st able. There is pulmonary vascular congestion. There is a suggestion of an infiltrate in the left lo wer lung. No pneumothoraces or large effusions are seen. POS: C
[2018-06-28 16:53] LABS: CKMB 3.2 ng/mL (0-6.6)
[2018-06-28] MEDS ORDERED: Famotidine 20 MG TAB PO PRN (17:18)
[2018-06-28 19:21] LABS: Troponin I 0.046 ng/mL (< 0.028)
[2018-06-28] MEDS ORDERED: Apixaban 2.5 MG TAB PO SCH (21:00)
[2018-06-28] MEDS ORDERED: Carvedilol 3.125 MG TAB PO SCH (21:00)
[2018-06-28 21:01] VITALS: BMI 21.9
[2018-06-28 22:14] LABS: Troponin I 0.049 ng/mL (< 0.028)
--- NOTE | 2018-06-28 23:55 | HP ---
CHIEF COMPLAINT: Shortness of breath, low oxygen level. 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 He has been undergoing treatment for his prostate cancer with Dr. Brownlee and had been on Casodex therapy. Recently started Lupron and Zytiga and has had plan to have a MediPort placed to initiate chemotherapy as well. He had been followed by Dr. Gill for his urinary issues in the past, and has been on different medicines for BPH. Daughter states that he had been doing well over the past few weeks until these symptoms began. He did not have any improvement with treating at home and he came to my office. On the day of admission, he was quite short of breath. When he came into the office, he initially had a pulse oximetry of 84% to 85%, it did come up to 96% to 97% on O2 nasal cannula, and he was sent to the emergency department for further evaluation and admission. PAST MEDICAL HISTORY: Prostate carcinoma with metastasis to the bones, cardiomyopathy, coronary artery disease, congestive heart failure with decreased left ventricular function, COPD, pulmonary fibrosis, atrial fibrillation, 4 cm abdominal aortic aneurysm. PAST SURGICAL HISTORY: Dermatological surgery for basal cell carcinoma in 2016, Watchman cardiac procedure at [facility] in February 2018, tonsillectomy in 1942, coronary artery bypass graft in 1992, AICD placement at [facility] in 2012, cataract repair in 2014, open abdominal aneurysm repair in 2016, open ventral hernia repair in 2017. MEDICATIONS: Include; 1. Protonix 40 mg daily. 2. Lipitor 80 mg daily. 3. Zetia 10 mg daily. 4. Finasteride 5 mg daily. 5. Tamsulosin 0.4 mg daily. 6. Carvedilol 3.125 mg b.i.d. 7. Eliquis 2.5 mg daily. 8. Aspirin 81 mg daily. 9. Potassium chloride 10 mEq daily. 10. Furosemide 40 mg 1 to 2 times daily. 11. Amoxicillin, recently started by oral surgeon. ALLERGIES: CIPRO. IMMUNIZATIONS: Flu shot and pneumonia shots up to date. FAMILY HISTORY: Father at 75 with a heart attack. Mother at 82 with skin cancer. SOCIAL HISTORY: Former smoker, he quit in 1992 after smoking for over 35 years. No alcohol. No other drug use. He lives alone with family nearby. He has a supportive family. Retired. REVIEW OF SYSTEMS: As per the history of present illness. CONSTITUTIONAL: Denies any recent fevers or chills. HEENT: Denies headache, visual, or hearing changes. CARDIAC: Denies chest pain. Positive shortness of breath. Positive dyspnea on exertion. Positive orthopnea. PULMONARY: Positive cough. Positive shortness of breath. No hemoptysis. GI: Denies nausea, vomiting, abdominal pain, melena, or hematochezia. : Positive urinary symptoms followed by Dr. Gill and Dr. Brownlee for BPH and prostate cancer. PSYCHIATRIC: Denies depression or anxiety. PHYSICAL EXAMINATION: VITAL SIGNS: In my office, temperature 97.9, pulse of 96, respirations 15 to 16, blood pressure 120/70, and pulse ox 84% to 97%, improved with 3 to 4 L nasal cannula. GENERAL: He is awake and alert. He is frail, appears weak. He does have conversational dyspnea. No acute distress. NECK: Supple. No bruits. HEART: Irregularly irregular. LUNGS: Decreased breath sounds. Some rales at the bases. ABDOMEN: Soft. EXTREMITIES: 1 to 2+ edema bilaterally. NEUROLOGIC: Slow gait. PSYCHIATRIC: Intact. LABORATORY DATA: Sodium 132, potassium 3.1, chloride 100, CO2 of 21, BUN and creatinine 21 and 1.12 with a GFR of 62. Serum glucose of 82, calcium 7.9. AST and ALT of 74 and 48. Troponin I is slightly elevated at 0.042. BNP was elevated at 692. White blood cell count 6,200; hemoglobin and hematocrit of 9.7 and 30.6, which is slightly down from his baseline; platelets of 255. IMAGING: Chest x-ray revealed changes with median sternotomy, left-sided AICD is in place, pulmonary vascular congestion, possible left lower lobe infiltrate. No pneumothoraces. No large effusions. Recent CT of the chest in April 2018 revealed severe interstitial fibrotic lung changes with evidence for honeycombing, nodular density in the lung base, bony metastatic disease and gallstones. ASSESSMENT AND PLAN: This is an 87-year-old gentleman with multiple medical problems, now with an apparent congestive heart failure exacerbation. 1. Congestive heart failure with coronary artery disease and decreased left ventricular function. We will increase diuresis and consult Cardiology for further evaluation. Further plan per Cardiology. 2. Chronic obstructive pulmonary disease with pulmonary fibrosis. The patient requests Dr. Ross to follow along while he is in the hospital. May benefit from neb treatments if he starts wheezing. No indication for antibiotics or steroids at this time. 3. Metastatic prostate carcinoma with treatment undergoing. We will consult Dr. Brownlee to follow along. Again, he had plans for MediPort placement to initiate further chemotherapy in the next week or two. We will have patient follow Dr. Brownlee's recommendations. 4. Paroxysmal atrial fibrillation, rate controlled. 5. Hypertension. We will continue his medications. Job ID: [id number]
[2018-06-29] MEDS: AMOXicillin 250 MG CAP PO SCH (08:18)
[2018-06-29] MEDS: Aspirin 81 mg Enteric Coated Tablet PO SCH (08:18)
[2018-06-29] MEDS: Potassium Citrate 10 MEQ TAB PO SCH (08:19)
[2018-06-29] MEDS: Ezetimibe 10 MG TAB PO SCH (08:20)
[2018-06-29] MEDS: Clopidogrel Bisulfate 75 MG TAB PO SCH (08:20)
[2018-06-29] MEDS: Atorvastatin Calcium 40 MG TAB PO SCH (08:20)
--- NOTE | 2018-06-29 08:42 | PRG ---
DATE OF SERVICE: 06/29/2018 SUBJECTIVE: The patient is feeling some better. He had significant output, urinating yesterday and last night. States that his breathing is better. He is able to be weaned off oxygen. Continues to have some shortness of breath with ambulating in the room. OBJECTIVE: VITAL SIGNS: Temperature 98.7, pulse is 77, respirations 17, blood pressure 103/50, pulse ox is 95% on room air. GENERAL: He is awake and alert. No acute distress. Speech is clear. Appears frail. NECK: Supple. HEART: Positive S1 and S2, irregular. LUNGS: Improved breath sounds. Some rales at the bases. Scattered rhonchi. ABDOMEN: Soft. EXTREMITIES: 1+ edema. He does have calf tenderness bilaterally. LABORATORY DATA: Reviewed. Sodium was 132, potassium was 3.1 yesterday. ASSESSMENT AND PLAN: This is an 87-year-old gentleman with multiple medical problems including metastatic prostate cancer, chronic obstructive pulmonary disease with pulmonary fibrosis, now with congestive heart failure exacerbation. 1. Congestive heart failure, improved. We will continue diuresis. Await cardiology evaluation. 2. Chronic obstructive pulmonary disease with pulmonary fibrosis, appears stable. 3. Metastatic prostate carcinoma, undergoing treatment. Await Dr. Brownlee's input whether to proceed with [facility]. 4. Paroxysmal atrial fibrillation, is rate controlled. Job ID: [id number]
[2018-06-29] MEDS ORDERED: Furosemide 40 MG/4 ML VIAL SLOW IVP SCH (09:00)
[2018-06-29] MEDS ORDERED: Bicalutamide 50 MG TAB PO SCH (09:00)
[2018-06-29] MEDS ORDERED: Potassium Citrate 10 MEQ TAB PO SCH (09:00)
[2018-06-29 09:10] LABS: Anion Gap 12 mmol/L (10-20); BUN (Urea Nitrogen) 20 mg/dL (8.4-25.7); Calc. Creatinine Clearance 41 mL/min (70-130); Calcium 7.1 mg/dL (7.8-10.44); Carbon Dioxide 22 mmol/L (23-31); Chloride 104 mmol/L (98-107); Estimated GFR-MDRD 68; Glucose 62 mg/dL (83-110); Potassium 3.1 mmol/L (3.5-5.1); Sodium 135 mmol/L (136-145)
--- NOTE | 2018-06-29 12:07 | CON ---
DATE OF CONSULTATION: HISTORY OF PRESENT ILLNESS: Brennon Bustos is an 87-year-old gentleman, who sees Dr. Ross in the office for many years, was admitted yesterday with increasing shortness of breath and cough. His daughter is at the bedside, who states that he can barely walk even 50 feet without getting markedly short of breath. This morning, he is feeling somewhat better. He is a former smoker, quit smoking in the . 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 No obvious occupational exposure. PAST MEDICAL HISTORY: Pertinent for cardiomyopathy; pulmonary fibrosis; atrial fibrillation; AICD; prostate cancer, metastatic disease, getting chemo; and abdominal aortic aneurysm. PAST SURGICAL HISTORY: His previous surgeries included a Watchman procedure, bypass, AICD, cataract, and abdominal surgery. SOCIAL HISTORY: Tobacco, as noted. Alcohol, none. MEDICATIONS: Home medicines: 1. Plavix 75. 2. Aspirin 81. 3. . 4. Pepcid. 5. Zetia 10. 6. Potassium 10. 7. Protonix. 8. Lasix 40. He was given increasing dose of Lasix yesterday, and apparently, he is much better. REVIEW OF SYSTEMS: Otherwise, 10-point is negative. PHYSICAL EXAMINATION: VITAL SIGNS: Saturations are 94% on room air, respiratory rate 20, temperature 98, pulse 81, blood pressure 99/52. CHEST: Extensive crackles bilaterally. CARDIAC: Normal S1 and S2. No gallops. ABDOMEN: No masses. LABORATORY DATA: Creatinine normal, sodium 131. His BNP was 692. His white count 6000. Chest x-ray showed extensive bilateral interstitial lung disease consistent with pulmonary fibrosis. CAT scan shows extensive honeycombing. IMPRESSION: 1. End-stage pulmonary fibrosis. 2. Congestive heart failure. 3. Prostate cancer. 4. Weight loss. 5. Advanced age. PLAN: I apparently started him on some Dulera, low-dose prednisone. Dr. Ross will see him in the morning. TIME SPENT: Consultation note of 70 minutes, 50% in direct patient care. Job ID: [id number]
--- NOTE | 2018-06-29 12:56 | CON ---
DATE OF CONSULTATION: REASON FOR CONSULTATION: Metastatic prostate cancer. HISTORY OF PRESENT ILLNESS: Mr. Bustos is a very pleasant 87-year-old gentleman, who was newly diagnosed with metastatic prostate cancer to the bones in April of 2018. He has been taking Lupron and Casodex. He had a PSA of 1700 on diagnosis and is improved to 85 with both Lupron and Casodex. Casodex was stopped, and he was placed on Zytiga. Unfortunately, he developed a rash and thrombocytopenia. Zytiga was stopped, and the plan was to begin IV Taxotere chemotherapy. He presented to his primary care yesterday with complaints of shortness of breath. His O2 saturation on room air was 85%. He was referred to the emergency room. In the emergency room, his BNP was 692. He was given a dose of diuretics with improvement in his symptoms. The patient has a significant cardiac history including cardiomyopathy, coronary artery bypass grafting, AICD placement, and atrial fibrillation. He has been off his Plavix and aspirin for several days in anticipation of MediPort placement scheduled for tomorrow. His Coreg has also been held due to hypotension in our clinic. Currently, he has no complaints. His shortness of breath has improved. No chest pain. No GI complaints. PAST MEDICAL HISTORY: 1. Metastatic prostate cancer. 2. Hypertension. 3. [place]. 4. Coronary artery disease. 5. Atrial fibrillation. 6. Ischemic cardiomyopathy. 7. Congestive heart failure. 8. Defibrillator. 9. Hyperlipidemia. 10. COPD. 11. Basal and squamous cell skin cancer. 12. Chronic kidney disease. 13. Recurrent GI bleed due to AV malformations. 14. Anemia. 15. History of blood transfusion. 16. Abdominal aortic aneurysm. 17. Pulmonary fibrosis. PAST SURGICAL HISTORY: 1. Tonsillectomy. 2. CABG. 3. Hernia repair. 4. Skin cancer excision. 5. AICD placement. 6. AAA repair. 7. Watchman procedure. ALLERGIES: CIPRO. HOME MEDICATIONS: 1. Aspirin 81 mg daily. 2. Atorvastatin 80 mg daily. 3. Plavix 75 mg daily. 4. Zetia 10 mg daily. 5. Pepcid daily. 6. Protonix daily. 7. Potassium citrate daily. 8. Lasix 40 mg daily. FAMILY HISTORY: Skin cancer. SOCIAL HISTORY: . Has 5 children. Former smoker with a [id number] history. No alcohol or illicit drug use. REVIEW OF SYSTEMS: A 10-point review of systems is negative except for noted in HPI. PHYSICAL EXAMINATION: VITAL SIGNS: Temperature is 98.5, pulse is 81, respiratory rate 20, BP is 99/52, he is 94% on room air. GENERAL: This is a frail, elderly gentleman, in no acute distress HEENT: Normocephalic and atraumatic. Pupils are equal and reactive to light. NECK: Supple. CARDIOVASCULAR: Regular rate and rhythm. LUNGS: Clear anterior. ABDOMEN: Soft and nontender. Bowel sounds are positive. EXTREMITIES: He has 1+ bilateral lower extremity edema. SKIN: No rash. HEMATOLOGICAL: No petechiae or purpura. NEUROLOGIC: Nonfocal. PSYCHIATRIC: The patient is alert, oriented and appropriate. PERTINENT LABS AND X-RAYS: Current WBCs are 6.2, hemoglobin 9.7, hematocrit 30.6, platelet count is 225,000, 56% neutrophils, 28% lymphocytes. Sodium is 135, potassium 3.1, chloride 104, CO2 is 22, BUN is 20, creatinine 1.03, calcium 7.1, bilirubin is 0.7, AST 74, ALT is 48, alkaline phosphatase is 108. Creatine kinase is 450. Troponin 0.049. Serum total protein 6.2, albumin 3.1, globulin 3.1. Lipase is 16. BNP 692. Chest x-ray shows vascular congestion. ASSESSMENT: 1. Metastatic prostate cancer. 2. Congestive heart failure exacerbation. DISCUSSION: The patient was to start Taxotere chemotherapy this week after a MediPort placement. Both chemotherapy and MediPort placement will be withheld at this time. He will follow up in the clinic to see Dr. Brownlee and discuss options. He has responded to both Lupron and Casodex and will likely be placed back on Casodex until his PSA begins to rise. Thank you for the consult. Job ID: [id number]
--- NOTE | 2018-06-29 13:44 | CON ---
DATE OF CONSULTATION: HISTORY OF PRESENT ILLNESS: Mr. Brennon Bustos is an 87-year-old white male followed since May 2013, when he moved to the area. In 1982, he had a large anterior myocardial infarction. While living in [place]. In 1992, he underwent CABG x2. His ejection fraction at that time was 30%. 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 A biventricular ICD was placed on May 26, 2006. This was replaced in March 2013. He has always complained of dyspnea on exertion after walking 0.5 mile. On interrogation of his defibrillator in June 2013, he was found to have approximately a 10 hour episode of atrial fibrillation. He was placed on Eliquis 5 mg b.i.d. and started to develop melena followed by chest pressure, shortness of breath. When he came to emergency room, his hemoglobin was 5.5. He has had several GI bleeds since that time. On endoscopies, he has been found to have angiodysplasia of the stomach and duodenum as well as gastritis. In February 2018, he underwent a watchman procedure at [facility] in [place]. In April 2018, he underwent transesophageal echo, which revealed a 2 mm leak in the Watchman device. He was last seen in the office June 09, 2018. He was found to have elevated OptiVol and had been placed on Lasix 40 mg b.i.d. for several days. When he was seen in the office, he continued to have crackles on exam. From looking at his OptiVol at the present time, this did go down to baseline after those extra doses. He did not have any peripheral edema on that office visit. He now states he has developed increasing lower extremity edema with redness and warmth of the skin. He also has had increasing dyspnea on exertion, just trying to walk in the house. He denied any chest discomfort. He went to go see Dr. Rutledge and was found to have room air O2 saturation of 84-85 percent. He has been admitted for further evaluation. PAST MEDICAL HISTORY: Hypertension, hypercholesterolemia, COPD, renal insufficiency, ischemic cardiomyopathy, diastolic dysfunction, severe mitral regurgitation, moderate aortic regurgitation, history of thoracic aortic aneurysm, paroxysmal atrial fibrillation, pulmonary fibrosis, COPD, and bronchitis. PAST SURGICAL HISTORY: 1. Skin surgery for basal cell carcinoma. 2. Placement of Watchman device in February 2018. 3. Status post abdominal aortic aneurysm repair by Dr. Marcelo Cramer. 4. CABG in [facility] in [place]. 5. ICD-biventricular placement and then replacement. 6. Inguinal herniorrhaphy. MEDICATIONS: 1. Aspirin 81 daily. 2. Plavix 75 mg daily. 3. Atorvastatin 80 daily. 4. Zetia 10 mg daily. 5. Famotidine p.r.n. 6. Furosemide 40 mg daily. 7. Pantoprazole 1 tablet p.r.n. 8. Potassium 10 mEq daily. ALLERGIES: CIPRO. SOCIAL HISTORY: Smoked many years ago. He does not drink. FAMILY HISTORY: Father of myocardial infarction. REVIEW OF SYSTEMS: A 10-point review of system is unremarkable. PHYSICAL EXAMINATION: VITAL SIGNS: Blood pressure 99/52, pulse of 81. HEENT: PERRL. NECK: Supple. CHEST: Reveals crackles 1/[address] up the posterior lung castro. CARDIOVASCULAR: S1, S2 normal without any S3 or S4. There is a 1-2/6 holosystolic murmur at the apex. ABDOMEN: Normal bowel sounds without tenderness. EXTREMITIES: Revealed 1+ pretibial edema with warmth and erythema from mid portion of the tibia to the feet. NEUROLOGICAL: Grossly intact. SKIN: Warm and dry. IMAGIN. EKG reveals ventricular pacing. 2. Chest x-ray revealed pulmonary vascular congestion. LABORATORY DATA: Hemoglobin 9.7, hematocrit 30.6, white count 6200, platelets 225,000. Sodium 135, potassium 3.1, chloride 104, carbon dioxide 22, BUN 20, creatinine 1.03. Troponin I 0.049. One month ago, LDL was 59. BNP 692.3. IMPRESSION: 1. [id number]-[id number] systolic heart failure. 2. Ischemic cardiomyopathy with ejection fraction of 30-35 percent, which increased to 35-40 percent, though most recent determination was 25% to 30%. He has peripheral edema, crackles on examination. 3. Furosemide has been increased to 40 mg p.o. b.i.d. 4. Status post coronary artery bypass graft. 5. Paroxysmal atrial fibrillation. 6. Status post Watchman procedure. 7. History recurrent gastrointestinal bleeds with finding of angiodysplasia of the stomach and duodenum and superficial gastritis. 8. Diastolic dysfunction. 9. Status post biventricular implantable cardioverter defibrillator placement. 10. Hypertension. 11. Hypercholesterolemia. Good control on blood test 1 month ago. 12. Former smoker. 13. Moderate mitral regurgitation. 14. Moderate aortic insufficiency. 15. History of pulmonary fibrosis. 16. Chronic kidney disease, although creatinine has been normal during this admission. 17. Chronic obstructive pulmonary disease. 18. Thoracic aortic aneurysm. 19. Status post abdominal aortic aneurysm repair. 20. Lower extremity cellulitis. PLAN: Mr. Bustos continue to be diuresed. His ICD will be checked for left ventricular lead function as well as OptiVol fluid measurement. It is very important how well he diuresis, we may need to change to intravenous furosemide. Job ID: [id number]
[2018-06-29] MEDS: Furosemide 40 MG TAB PO SCH (14:44)
[2018-06-29] MEDS: Mometasone/Formoterol 120 PUFF INHALER INH SCH (18:13)
[2018-06-30] MEDS: Mometasone/Formoterol 120 PUFF INHALER INH SCH ×2 (07:15→18:53)
[2018-06-30 07:50] LABS: Hemoglobin 8.9 g/dL (14.0-18.0); Platelet Count 245 thou/uL (130-400)
[2018-06-30] MEDS ORDERED: predniSONE 20 MG TAB PO SCH (08:00)
[2018-06-30] MEDS: Ezetimibe 10 MG TAB PO SCH (08:19)
[2018-06-30] MEDS: AMOXicillin 250 MG CAP PO SCH (08:19)
[2018-06-30] MEDS: Potassium Citrate 10 MEQ TAB PO SCH (08:19)
[2018-06-30] MEDS: Furosemide 40 MG TAB PO SCH ×2 (08:19→13:40)
[2018-06-30] MEDS: Atorvastatin Calcium 40 MG TAB PO SCH (08:19)
[2018-06-30] MEDS: Aspirin 81 mg Enteric Coated Tablet PO SCH (08:19)
[2018-06-30] MEDS: Clopidogrel Bisulfate 75 MG TAB PO SCH (08:19)
--- NOTE | 2018-06-30 09:45 | PRG ---
DATE OF SERVICE: 06/30/2018 SUBJECTIVE: The patient is feeling much better since admission to the hospital. States his breathing has improved, as well as his swelling. OBJECTIVE: VITAL SIGNS: Temperature 97.8, pulse 79, respirations 20, saturating 94% on room air, blood pressure 104/57. LABORATORY DATA: White blood cells 6.2; hemoglobin 9.7, down to 8.9; platelets 245. Sodium 135, potassium 3.1, BUN 20, creatinine 1.03, calcium 7.1, glucose 62, albumin 3.1. BNP 692.3. Troponin peaked at 0.049. PHYSICAL EXAMINATION: GENERAL APPEARANCE: The patient is lying in bed, in no acute distress. RESPIRATORY: Respirations are not labored. NEUROLOGIC: Nonfocal. PSYCHIATRIC: Awake, alert, and oriented x3. ASSESSMENT AND PLAN: An 87-year-old male with metastatic prostate cancer to bones and congestive heart failure, presenting to the hospital with congestive heart failure exacerbation. The patient's pulmonary status has markedly improved with diuresis. The vital signs are currently stable. His oxygen saturations improved from 84% to 85% on admission to 94% on room air. The patient was due for MediPort placement and to begin Taxotere chemotherapy; however, after discussion with him and in light of congestive heart failure exacerbation, we will hold off on MediPort placement, and we will not start Taxotere at this time. I discussed with him to restart his Casodex when he is discharged home, and I will follow up with him in clinic at the next scheduled appointment. The patient is to continue Lasix as per Cardiology and will follow up with Dr. Layne. Plan is for discharge today. Job ID: [id number]
--- NOTE | 2018-06-30 12:54 | PRG ---
DATE OF SERVICE: 06/30/2018 SUBJECTIVE: The patient continues to feel better. He states that his breathing is improved. Oxygen saturations are staying above 93 to 94%. He is able to walk in the room with less difficulty. Denies fevers, chills, nausea or vomiting. OBJECTIVE: VITAL SIGNS: Temperature 98.4, pulse of 81, respirations 20, pulse ox 100% on room air, blood pressure 95/53. GENERAL: He is awake and alert. No acute distress. Speech is clear. NECK: Supple. HEART: S1, S2. LUNGS: Clear. He does have fine rales at the bases. No wheezes. ABDOMEN: Soft. EXTREMITIES: With minimal edema. LABORATORY DATA: Hemoglobin hematocrit 8.9 and 27.8. Sodium 135, potassium 3.1, chloride 104, CO2 of 22, BUN and creatinine 20 and 1.03. Serum glucose is 62, Troponins are 0.042, 0.046, 0.049. ASSESSMENT/PLAN: 1. This is an 87-year-old gentleman with multiple medical problems admitted for congestive heart failure exacerbation. He has diuresed well and is feeling much better, hoping to be discharged home today, awaiting cardiology evaluation today. 2. Chronic obstructive pulmonary disease with pulmonary fibrosis, appears to be stable. Dr. Khan started him on inhaled steroids. 3. Metastatic prostate carcinoma. Appreciate Dr. Brownlee's plan and evaluation and he will follow up as outpatient to continue treatment protocols. 4. Disposition. Again, awaiting cardiology re-evaluation. Hopefully home later on today. Job ID: [id number]
[2018-06-30 17:03] VITALS: BP 99/55; TEMP 97.6
--- NOTE | 2018-06-30 18:03 | PRG ---
DATE OF SERVICE: 06/30/2018 SUBJECTIVE: Mr. Bustos's events have been reviewed. OBJECTIVE: GENERAL: He is in no distress. VITAL SIGNS: He is afebrile, heart rate 87, respiratory rate is 15, oximetry is 97% on room air, blood pressure 99/55. LUNGS: Remarkable for dry crackles in both lung bases. HEART: Regular rhythm. ABDOMEN: Soft. He desperately wants to go home today. IMPRESSION: Interstitial lung disease. I have followed him since at least 2010 and he is not demonstrated any radiographic progression of his interstitial lung disease. He clinically has not been behaving like somebody that has usual interstitial pneumonitis. 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 He does have an ischemic cardiomyopathy with a significant decrease in his ejection fraction. His diuretics have been adjusted. Other problems include atrial fibrillation, recent Watchman procedure, recent switch from warfarin to Plavix. History of recurrent gastrointestinal bleed secondary to angiodysplasia, diastolic dysfunction, status post implantable defibrillator and moderate mitral regurgitation. We will be happy to follow with the other physicians caring for him. I think his pulmonary disease is stable. Dr. Khan started prednisone yesterday. I would taper him off prednisone and we have written prescription for this. He has an appointment with me next month. He can either keep that or rescheduled for the end of the year. Job ID: [id number]
== END 2018-06-30 19:27 | disposition home or self-care (01) | DRG 292 ==
LOC: SCSER 15:26 → SCSEROBS 16:38 → 2SW 20:35 → OBSVTOIN 06-30 08:24
PROVIDERS: ADMIT Family Medicine; ATTEND Family Medicine
DX: I11.0 Hypertensive heart disease with heart failure (principal); C79.82 Secondary malignant neoplasm of genital organs; I50.33 Acute on chronic diastolic (congestive) heart failure; E78.00 Pure hypercholesterolemia, unspecified; J44.9 Chronic obstructive pulmonary disease, unspecified; I25.5 Ischemic cardiomyopathy; I48.0 Paroxysmal atrial fibrillation; J84.10 Pulmonary fibrosis, unspecified; I25.2 Old myocardial infarction
CPT/HCPCS: 36415; 71045; 80048; 80053; 82550; 82553; 83690; 83880; 84484; 85014; 85018; 85025; 85049; 93005; 96374; J1940

== ENCOUNTER 2018-07-19 14:05 | Outpatient (CLI) | payer MEDICARE ==
[2018-07-19] MEDS ORDERED: Sodium Chloride 0.9% 10 ML ONE (14:34)
[2018-07-19] MEDS ORDERED: diphenhydrAMINE 25 MG CAP PO SCH (14:45)
[2018-07-19] MEDS ORDERED: Acetaminophen 500 MG TAB PO SCH (14:45)
[2018-07-19 19:28] LABS: Hemoglobin 7.6 g/dL (14.0-18.0); Mean Corpuscular HGB CONC 32.5 g/dL (32.0-36.0); Mean Corpuscular Hemoglobin 30.1 pg (27.0-31.0); Mean Corpuscular Volume 92.7 fL (78.0-98.0); Mean Platelet Volume 7.2 fL (7.4-10.4); Platelet Count 177 thou/uL (130-400); RBC Distribution Width 19.5 % (11.5-14.5); Red Blood Cell (RBC) Count 2.53 mill/uL (4.70-6.10); White Blood Cell (WBC) Count 7.9 thou/uL (4.8-10.8)
[2018-07-19 19:50] LABS: Anisocytosis MODERATE=16-30 cells (100X) (0-5/hpf); Burr Cells SLIGHT = 2-5 cells (100X) (0-1/hpf); Lymphocytes 21 % (21-51); MDiff Complete? YES; Monocytes 4 % (0-10); Neutrophil 75 % (42-75); Ovalocytes SLIGHT = 2-5 cells (100X) (0-1/hpf); Platelet Morphology Comment Appears Adequate; Polychromasia MODERATE = 3-4 cells (100X) (0-2/hpf)
[2018-07-20 01:12] VITALS: BP 101/58; TEMP 98.3
[2018-07-20 01:22] LABS: Hemoglobin 9.6 g/dL (14.0-18.0); Mean Corpuscular HGB CONC 32.6 g/dL (32.0-36.0); Mean Corpuscular Hemoglobin 30.7 pg (27.0-31.0); Mean Platelet Volume 7.4 fL (7.4-10.4); Platelet Count 191 thou/uL (130-400); RBC Distribution Width 18.7 % (11.5-14.5); Red Blood Cell (RBC) Count 3.12 mill/uL (4.70-6.10); White Blood Cell (WBC) Count 9.7 thou/uL (4.8-10.8)
[2018-07-20 01:23] LABS: Band 1 % (5-11); Hypochromia SLIGHT = 6-15 cells (100X) (0-5/hpf); Lymphocytes 21 % (21-51); MDiff Complete? YES; Monocytes 3 % (0-10); Neutrophil 75 % (42-75); Platelet Morphology Comment Appears Adequate
== END 2018-07-20 00:45 | disposition home or self-care (01) ==
LOC: ONC/OP 14:05 → 3SE 14:05 → ONC/OP 07-20 00:45
PROVIDERS: ATTEND Internal Medicine Hematology & Oncology
DX: D69.59 Other secondary thrombocytopenia (principal); D64.9 Anemia, unspecified
CPT/HCPCS: 36415; 36430; 80053; 82248; 83615; 84100; 84153; 84550; 85007; 85027; 86850; 86900; 86901; P9016; Q0163

== ENCOUNTER 2018-07-21 09:21 | Outpatient (CLI) | payer MEDICARE ==
--- NOTE | 2018-07-21 09:47 | RAD ---
CHEST 2 VIEWS: HISTORY: Dyspnea. COMPARISON: 07/28/2017. FINDINGS: Borderline heart size. Postop midline sternotomy. Left ICD. Stable-appearing chronic interstitial and linear parenchymal changes bilaterally more prominent in the left mid and lower chest and right c ostophrenic angle regions. No new confluent process or overt edema. IMPRESSION: Overall stable bilateral chronic lung changes. Postop midline sternotomy and left implantable cardio verter defibrillator. Atherosclerosis of the aorta with ectasia. POS: OFF
== END 2018-07-21 09:22 | disposition home or self-care (01) ==
LOC: RAD 09:21
PROVIDERS: ATTEND Internal Medicine Critical Care Medicine
DX: R06.00 Dyspnea, unspecified (principal); I70.0 Atherosclerosis of aorta; I77.811 Abdominal aortic ectasia; J98.4 Other disorders of lung; Z98.890 Other specified postprocedural states; Z95.810 Presence of automatic (implantable) cardiac defibrillator
CPT/HCPCS: 71046

== ENCOUNTER 2018-08-01 05:56 | Day surgery (SDC) | payer MEDICARE ==
[2018-07-28 14:52] VITALS: BMI 19.0
[2018-08-01 06:45] LABS: INR-International Normal Ratio 1.1; Prothrombin Time 13.9 SEC (12.0-14.7)
[2018-08-01 06:46] LABS: PTT 37.1 SEC (22.9-36.1)
[2018-08-01] MEDS ORDERED: Lidocaine 1% PF 5 ML VIAL ONE (11:24)
[2018-08-01] MEDS ORDERED: PROPOFOL 200 MG/20 ML VIAL ONE (11:24)
[2018-08-01] MEDS ORDERED: PHENYLEPHRINE-NS 100 MCG/ML 10 ML SYRINGE ONE (11:24)
--- NOTE | 2018-08-01 14:59 | OP ---
DATE OF CONSULTATION: 08/01/2018 HISTORY OF PRESENT ILLNESS: An 88-year-old gentleman with paroxysmal atrial fibrillation. The patient was taken to the PACU. The patient was sedated by Anesthesiology. A transesophageal probe was placed into the distal esophagus and stomach. Echocardiographic images were obtained. Transesophageal probe was removed. FINDINGS: 1. Hoayqxvn-rg-mclpow decrease in left ventricular systolic function. 2. Left ventricle is mildly dilated. 3. Yrojylli-ex-ybnvym mitral regurgitation. 4. Moderate tricuspid regurgitation. 5. Mild aortic regurgitation. 6. Small 1 mm leak noted around the Watchman device. 7. Atherosclerotic debris in the descending aorta. 8. Defibrillator wire is noted in the right ventricle. IMPRESSION: Small 1 mm leak noted around the Watchman device. Job ID: [id number]
--- NOTE | 2018-08-02 22:51 | EKG ---
Test Reason : PREOP Blood Pressure : / mmHG Vent. Rate : 083 BPM Atrial Rate : 083 BPM P-R Int : 154 ms QRS Dur : 148 ms QT Int : 418 ms P-R-T Axes : 037 -27 108 degrees QTc Int : 491 ms Electronic ventricular pacemaker When compared with ECG of 28-JUN-2018 15:35, (Unconfirmed) Vent. rate has decreased BY 16 BPM Confirmed by VANESSA HARDING ([id number]) on 08/02/2018 10:51:01 PM Referred By: MARLENY Confirmed By:VANESSA HARDING
== END 2018-08-01 09:44 | disposition home or self-care (01) ==
LOC: CCL 05:56
PROVIDERS: ATTEND Internal Medicine Cardiovascular Disease
PROC: B24BZZ4 Ultrasonography of Heart with Aorta, Transesophageal (ICD-10-PCS; principal; 2018-08-01)
DX: I48.0 Paroxysmal atrial fibrillation (principal); I70.0 Atherosclerosis of aorta; I08.3 Combined rheumatic disorders of mitral, aortic and tricuspid valves; Z79.02 Long term (current) use of antithrombotics/antiplatelets; Z79.82 Long term (current) use of aspirin; Z79.899 Other long term (current) drug therapy; Z88.0 Allergy status to penicillin; Z95.1 Presence of aortocoronary bypass graft; Z95.810 Presence of automatic (implantable) cardiac defibrillator; Z95.818 Presence of other cardiac implants and grafts
CPT/HCPCS: 36415; 85610; 85730; 93005; 93010; 93312; J2001; J2704

== ENCOUNTER 2018-11-03 09:36 | Outpatient (CLI) | payer MEDICARE ==
--- NOTE | 2018-11-03 14:03 | NM ---
Radionucleotide bone scan HISTORY: Prostate cancer with osseous metastases. Restaging. COMPARISON: 04/15/2008. FINDINGS: Heterogeneous uptake of radiotracer throughout the axial skeleton with the appearance of de generative changes. Degenerative uptake also at each shoulder. Focal areas of prominently increased uptake previously seen at the ribs, left upper lumbar spine, man ubrium, and pelvis have nearly completely resolved. Uptake is more prominent over the superior pubic rami bilaterally, but is favored to represent the urinary bladder based on the posterior images . Focal abnormality involving the maxilla on the previous study is no longer visible. IMPRESSION: Significant interval improvement.
== END 2018-11-03 09:37 | disposition home or self-care (01) ==
LOC: NM 09:36
PROVIDERS: ATTEND Internal Medicine Hematology & Oncology
DX: C61 Malignant neoplasm of prostate (principal); C79.51 Secondary malignant neoplasm of bone
CPT/HCPCS: 78306; A9503

== ENCOUNTER 2019-01-26 10:02 | Outpatient (CLI) | payer MEDICARE ==
--- NOTE | 2019-01-26 10:14 | RAD ---
EXAM: Chest 2 views: HISTORY: Dyspnea COMPARISON: 07/21/2018 FINDINGS: There is an enlarged but stable cardiomediastinal silhouette. The patient is status post CABG. The p acemaker is unchanged in position. Increased interstitial markings are present. There is no evidence of consolidation, mass, or pleural effusion. The bones are unremarkable. IMPRESSION: No evidence of acute cardiopulmonary disease
== END 2019-01-26 10:03 | disposition home or self-care (01) ==
LOC: RAD 10:02
PROVIDERS: ATTEND Internal Medicine Critical Care Medicine
DX: R06.00 Dyspnea, unspecified (principal)
CPT/HCPCS: 71046

== ENCOUNTER 2019-09-02 09:30 | Inpatient (IN) | payer MEDICARE ==
[2019-09-02 10:28] LABS: #Basophils 0.1 thou/uL (0.0-0.2); #Lymphocytes 1.4 thou/uL (1.20-3.40); #Monocytes 0.4 thou/uL (0.11-0.59); #Neutrophils 7.8 thou/uL (1.40-6.50); %Basophils 0.9 % (0.0-1.0); %Eosinophils 0.3 % (0.0-10.0); %Lymphocytes 14.3 % (21.0-51.0); %Monocytes 4.5 % (0.0-10.0); Mean Corpuscular HGB CONC 32.8 g/dL (32.0-36.0); Mean Corpuscular Hemoglobin 33.3 pg (27.0-31.0); Mean Platelet Volume 7.6 fL (7.4-10.4); Platelet Count 179 thou/uL (130-400); RBC Distribution Width 13.6 % (11.5-14.5); Red Blood Cell (RBC) Count 4.22 mill/uL (4.70-6.10); White Blood Cell (WBC) Count 9.8 thou/uL (4.8-10.8)
[2019-09-02] MEDS ORDERED: Pantoprazole 40 MG VIAL ONE (10:42)
[2019-09-02] MEDS ORDERED: Ondansetron PF 4 MG/2 ML Vial ONE (10:43)
[2019-09-02 10:50] LABS: ALT (SGPT) 9 U/L (8-55); AST (SGOT) 22 U/L (5-34); Albumin 3.8 g/dL (3.4-4.8); Alkaline Phosphatase 106 U/L (40-110); Anion Gap 14 mmol/L (10-20); BUN (Urea Nitrogen) 25 mg/dL (8.4-25.7); Bilirubin, Total 0.8 mg/dL (0.2-1.2); Calc. Creatinine Clearance 0 mL/min (70-130); Calcium 10.3 mg/dL (7.8-10.44); Carbon Dioxide 30 mmol/L (23-31); Chloride 96 mmol/L (98-107); Estimated GFR-MDRD 55; Globulin 3.6 g/dL (2.4-3.5); Glucose 121 mg/dL (83-110); Lipase 14 U/L (8-78); Potassium 3.8 mmol/L (3.5-5.1); Protein, Total 7.4 g/dL (5.8-8.1); Sodium 136 mmol/L (136-145)
[2019-09-02] MEDS ORDERED: Benzocaine 20% Spray 60 ML CAN ONE (11:44)
[2019-09-02] MEDS ORDERED: Lidocaine Viscous Sol 2% 15 ml UD Cup ONE (11:44)
--- NOTE | 2019-09-02 12:24 | CT ---
ABDOMEN AND PELVIC CT SCAN WITH IV CONTRAST: Date: 09/02/2019 HISTORY: Abdominal pain. FINDINGS: There are extensive bilateral lung chronic appearing changes including some hyperinflation and some b ilateral honeycombing, raising concern for possible interstitial fibrosis. Postop midline sternotomy. ICD in place. The liver appears unremarkable. The gallbladder demonstrates at least one gallstone in the dependent portion of the gallbladder without wall thickening or pericholecystic fluid or edema. Pancreas is somewhat thinned and poorly defined without evidence for pancreatic mass. The spleen appe ars unremarkable. Adrenal glands are unremarkable. Both right and left kidneys appear to be small wit h some renal cortical loss, worse on the right side, with some renal hypodensities, evidence for smal l cysts. There are some abnormally dilated small bowel loops throughout much of the abdomen with nond ilated distal ileum and an underdistended nondilated colon, evidence for small bowel obstruction. Sma ll amount of free fluid in the pelvis. Postop changes in the retroperitoneum and periaortic regions. No evidence for adenopathy. Extensive lytic and blastic bone metastasis. IMPRESSION: 1. Abnormal small bowel dilatation with air fluid levels, evidence for small bowel obstruction. 2. Underdistended colon. 3. Gallstone without CT evidence for acute cholecystitis. 4. Stable appearing chronic lung changes. 5. Other findings as above. POS: [facility]
--- NOTE | 2019-09-02 13:20 | RAD ---
EXAM: CHEST ONE VIEW: 09/02/19 HISTORY: Diarrhea and abdominal pain. History of GI bleed and weakness. COMPARISON: Abdomen CT 09/02/19 and chest PA and lateral 01/26/19. There is some rotation to the left. NG tube in place. Postop midline sternotomy and left ICD. Scatter ed hyperinflation and chronic interstitial and linear parenchymal changes bilaterally evidence for c hronic interstitial lung disease with an overall stable appearance from the prior study. IMPRESSION: NG tube extending into the stomach. Stable appearing hyperinflation and chronic lung changes. POS: [facility]
[2019-09-02] MEDS ORDERED: Ondansetron PF 4 MG/2 ML Vial IVP PRN (14:07)
[2019-09-02] MEDS ORDERED: Ondansetron ODT 4 MG TAB SL PRN (14:07)
[2019-09-02] MEDS ORDERED: Sodium Chloride 0.9% 1,000 ML IV SCH ×2 (14:07→15:45)
[2019-09-02 14:46] VITALS: BMI 19.3
[2019-09-02] MEDS ORDERED: Ondansetron ODT 4 MG TAB PO PRN (15:43)
[2019-09-02] MEDS ORDERED: Acetaminophen 500 MG TAB PO PRN (15:43)
[2019-09-02] MEDS ORDERED: hydrALAZINE 20 MG/ML VIAL SLOW IVP PRN (15:43)
[2019-09-02] MEDS: Sodium Chloride 0.9% 1,000 ML IV SCH (17:19)
--- NOTE | 2019-09-02 18:22 | HP ---
PRIMARY CARE PROVIDER: Sami Rutledge DO CHIEF COMPLAINT: Abdominal pain. HISTORY OF PRESENT ILLNESS: This is an 89-year-old male who presented to [facility] Emergency Department, complaining of persistent severe abdominal pain with associated nausea, vomiting, and diarrhea. The patient states the symptoms began in the last 48 to 72 hours with abdominal cramping, decreased appetite with several bouts of diarrhea in the automatic line set up mechanic hours on the date of presentation. The patient denies any recent travel history, family members with similar symptoms, change to his diet or new medication exposure. The patient denied any blood in his stool or emesis. The patient does admit to history of gastric ulcers, status post cauterization in the past while taking anticoagulation. The patient states he was ultimately discontinued on anticoagulation and has not had any recurrence since. The patient denied any dysuria, recent abdominal surgeries, or trauma. In the emergency room, the patient underwent general evaluation including CT of the abdomen and pelvis showing evidence of small bowel obstruction. The patient was treated with Zofran, Bentyl, and Protonix intravenously and given 1 L of normal saline. The patient also underwent placement of NG tube with return of approximately half a canister of bilious drainage. The patient was evaluated by the General Surgery Service and deemed appropriate for conservative management. The patient was transferred to the medical floor for further evaluation. PAST MEDICAL HISTORY: 1. Chronic obstructive pulmonary disease. 2. Metastatic prostate cancer with bone involvement. 3. Ischemic cardiomyopathy. 4. Coronary artery disease. 5. Chronic systolic congestive heart failure with AICD device. 6. Pulmonary fibrosis. 7. Chronic atrial fibrillation, status post Watchman device. Abdominal aortic aneurysm 4 cm. 8. Basal cell carcinoma. PAST SURGICAL HISTORY: 1. Status post skin surgery for basal cell carcinoma. 2. Status post Watchman device in February 2018. 3. Status post tonsillectomy in 194. 4. Status post coronary artery bypass grafting in 1992. 5. Status post AICD placement at [facility] in 2012. 6. Status post cataract repair. 7. Status post open abdominal aneurysm repair in 2015. 8. Status post open ventral abdominal hernia repair in 2016. 9. Status post multiple endoscopies with cauterization of gastric ulcers. CURRENT MEDICATIONS: 1. Atorvastatin 80 mg p.o. q.a.m. 2. Calcitriol 0.25 mcg p.o. daily. 3. Carvedilol 3.125 mg half a tablet p.o. b.i.d. 4. Xtandi 160 mg p.o. daily. 5. Pepcid 20 mg p.o. daily. 6. Feosol 325 mg p.o. b.i.d. 7. Lupron 11.25 mg intramuscularly q.180 days. 8. Klor-Con 10 mEq p.o. b.i.d. 9. Flomax 0.4 mg p.o. daily. 10. Aspirin 81 mg p.o. daily. 11. Zetia 10 mg p.o. daily. 12. Lasix 40 mg p.o. b.i.d. ALLERGIES: TO CIPROFLOXACIN. FAMILY HISTORY: Father at the age of 75 with myocardial infarction. Mother at 82 secondary to skin cancer. SOCIAL HISTORY: Resides in [place], [place]. Retired. Accompanied by his daughter in the hospital. No current alcohol, tobacco, or illicit drug use. Quit smoking in 1992 after 35 years of smoking. Ambulates with a cane. REVIEW OF SYSTEMS: CONSTITUTIONAL: Negative for weight loss or gain, ability to conduct usual activities. SKIN: Negative for rash, itching. EYES: Negative for double vision, pain. ENT/MOUTH: Negative for nose bleeding, neck stiffness, pain, tenderness. CARDIOVASCULAR: Negative for palpitations, dyspnea on exertion, orthopnea. RESPIRATORY: Negative for shortness of breath, wheezing, cough, hemoptysis, fever or night sweats. GASTROINTESTINAL: Negative for poor appetite, abdominal pain, heartburn, nausea, vomiting, constipation, or diarrhea. GENITOURINARY: Negative for urgency, frequency, dysuria, nocturia. MUSCULOSKELETAL: Negative for pain, swelling. NEUROLOGIC/PSYCHIATRIC: Negative for anxiety, depression. ALLERGY/IMMUNOLOGIC: Negative for skin rash, bleeding tendency. Otherwise negative except as stated per HPI. PHYSICAL EXAMINATION: VITAL SIGNS: Blood pressure 115/57, pulse 89, respiratory rate 18, temperature 98.3 degrees Fahrenheit, and O2 saturation 95% on room air. GENERAL APPEARANCE: This is an 89-year-old male, alert and oriented x3, responsive, pale, and tired-appearing. HEENT: Pupils are equal, round, reactive to light and accommodation. Extraocular muscles are intact. No scleral icterus. No conjunctival injection. Nares patent. OP is clear. NG tube in the nares. Oral mucosa dry. NECK: Supple. No cervical adenopathy. No thyromegaly. No carotid bruits. No JVD appreciated. Cervical spine with full active and passive range of motion. No meningeal signs noted. CHEST: Lungs are clear to auscultation bilaterally. CARDIOVASCULAR: S1 and S2 with irregular rate and rhythm. Left upper chest wall with AICD device in place. ABDOMEN: Rounded with mild tenderness to palpation in the mid epigastric region. Bowel sounds diminished, but positive. No palpable mass. No rebound or guarding noted. EXTREMITIES: Warm and dry with fair turgor. No clubbing, cyanosis, or asymmetric edema appreciated. Pulses palpable distally at the dorsalis pedis, posterior tibial, and popliteal arteries bilaterally. Capillary refill less than 2 seconds. NEUROLOGIC: Cranial nerves 2 through 12 are grossly intact. No focal or lateralizing signs appreciated. PERTINENT LABORATORY AND X-RAY FINDINGS: Sodium 136, potassium 3.8, chloride 96, CO2 of 30, BUN 25, creatinine 1.24, estimated GFR of 55, glucose 121, and calcium 10.3. LFTs within normal limits. Lipase 14. CBC showed a white blood cell count of 9.8, hemoglobin 14, hematocrit 43, MCV 101, platelet count 179 with 80% neutrophilia. CT of the abdomen and pelvis dated 09/02/2019, showed small bowel obstruction. Please see dictated report for full details. Portable chest x-ray dated 09/02/2019 showed NG tube in the stomach. Scattered hyperinflation and chronic interstitial lung changes. ASSESSMENT AND PLAN: 1. Acute small bowel obstruction. The patient will be admitted to the medical floor. We will continue NG tube with low intermittent wall suctioning. N.p.o. except for sips of water and ice chips. We will continue conservative management and monitor with serial abdominal exams. Consider small bowel follow-through in the a.m. if clinically stabilizing. 2. Nausea and vomiting, secondary to acute small bowel obstruction. Continue treatment as outlined in #1. Zofran 4 mg IV q.6 hours p.r.n. 3. Chronic atrial fibrillation, status post Watchman device. Stable currently. Continue supportive management and rate control. No anticoagulation due to Watchman device placement. 4. Metastatic prostate carcinoma. Stable currently. We will resume outpatient chemotherapy after discharge. 5. Prophylaxis. SCDs while in bed. Pepcid 20 mg IV q.12 hours. General fall risk precautions. 6. Code status is full. Surrogate medical decision maker is the patient's daughter. Job ID: [id number]
[2019-09-02] MEDS: Famotidine/PF 20 mg/2ml Vial SLOW IVP SCH (21:09)
[2019-09-02] MEDS: Carvedilol 3.125 MG TAB PO SCH (22:38)
[2019-09-03] MEDS: Ondansetron PF 4 MG/2 ML Vial IVP PRN ×2 (01:12→08:17)
[2019-09-03] MEDS ORDERED: Morphine 2 MG/ML SYRINGE SLOW IVP PRN (01:24)
--- NOTE | 2019-09-03 02:18 | CON ---
DATE OF CONSULTATION: 09/03/2019 GENERAL SURGEON: Dr. Jauregui. HISTORY OF PRESENT ILLNESS: The patient is an 89-year-old male, presented to the emergency department yesterday complaining of epigastric abdominal pain. The patient reported he has been having abdominal pain, nausea, vomiting intermittently for the past three days. His last bowel movement was Wednesday. CT scans were completed upon his arrival, which demonstrated there was evidence for small bowel obstruction. He was admitted to the medical floor, and Dr. Jauregui was consulted, and NG tube was placed, and there is a bilious output. At the time of my evaluation, the patient complained of epigastric pain, nausea, and hiccuping. NG tube was not appropriately working at the time of my evaluation, it was flushed, and it was working after that time. The patient denies fever, diarrhea, or constipation. REVIEW OF SYSTEMS: All additional 10-point review of systems negative except as indicated above. PAST MEDICAL HISTORY: COPD, metastatic prostate cancer with bone involvement, ischemic cardiomyopathy, coronary artery disease, congestive heart failure with AICD, pulmonary fibrosis, CHF, status post Watchman, aortic aneurysm, status post surgery. PAST SURGICAL HISTORY: Skin surgery for basal cell carcinoma, Watchman device placed in 2018, tonsillectomy, CABG, AICD placement, cataract surgery, abdominal aneurysm surgery which was performed open, ventral abdominal hernia repair, multiple endoscopics and catheterizations for gastric ulcers. SOCIAL HISTORY: The patient lives at a community alone. It is essentially a fdc community. His daughter comes to check on him. MEDICATIONS: 1. Atorvastatin. 2. Carvedilol. 3. Xtandi. 4. Pepcid. 5. Feosol. 6. Lupron. 7. Klor-Con. 8. Flomax. 9. Aspirin. 10. Zetia. 11. Lasix. 12. Calcitriol. ALLERGIES: CIPRO. PHYSICAL EXAMINATION: VITAL SIGNS: Temperature 98.2, pulse 78, respirations 18, oxygen saturation 91% on room air, blood pressure 104/59. GENERAL: Frail elderly male, sitting up in bed with some mild abdominal distress. PULMONARY: Equal chest rise and fall. Clear breath sounds bilaterally. No signs of acute respiratory distress. CARDIAC: Regular rate and rhythm. The patient has a mid-systolic murmur. GI: Abdomen is soft, mildly tender in epigastric region and nondistended. EXTREMITIES: 2+ pulses in all extremities. Gross motor and sensation are intact. No significant swelling noted. NEUROLOGIC: GCS is 15. LABORATORY FINDINGS: White count 9.8, hemoglobin 14.0, hematocrit 42.8, platelets 179. Sodium 136, potassium 3.8, chloride 96, bicarb 30, BUN 25, creatinine 1.24. Total bilirubin 0.8, AST 22, ALT 9, alkaline phosphatase 0.6. Chest x-ray demonstrates NG tube extending into the stomach, stable appearing hyperinflation of the chronic lung changes. CT of the abdomen and pelvis demonstrates abnormal small bowel dilation with air fluid levels, evidence of small bowel obstruction under distended colon and gallstones without CT evidence of acute cholecystitis. Stable appearing chronic lung changes. Other findings as above. ASSESSMENT: 1. Small-bowel obstruction. 2. History of chronic obstructive pulmonary disease, metastatic prostate cancer with bone involvement, ischemic cardiomyopathy, coronary artery disease, chronic systolic congestive heart failure with automatic implantable cardioverter-defibrillator, pulmonary fibrosis, chronic atrial fibrillation with Watchman device, and basal cell carcinoma. PLAN: Continue n.p.o. Continue NG tube to low intermittent wall suction. Closely monitor I's and O's. Continue IV fluids as previously ordered by Primary Team. We will discontinue Tylenol for pain control. Start the patient on morphine p.r.n. low dose and we will adjust as needed. The patient to receive a small-bowel follow-through. Trauma Team and Dr. Jauregui will round on the patient again later this morning and make further recommendations. The patient to start working with PT and ambulating as much as tolerated. The patient also to be up out of bed and then chair b.i.d. This patient was discussed with Dr. Jauregui before this dictation. Job ID: [id number]
[2019-09-03] MEDS: Sodium Chloride 0.9% 1,000 ML IV SCH ×2 (04:00→17:27)
[2019-09-03 06:06] LABS: Hemoglobin 12.4 g/dL (14.0-18.0); Mean Corpuscular HGB CONC 32.9 g/dL (32.0-36.0); Mean Corpuscular Hemoglobin 33.8 pg (27.0-31.0); Mean Platelet Volume 7.1 fL (7.4-10.4); Platelet Count 158 thou/uL (130-400); RBC Distribution Width 13.9 % (11.5-14.5); Red Blood Cell (RBC) Count 3.68 mill/uL (4.70-6.10); White Blood Cell (WBC) Count 7.6 thou/uL (4.8-10.8)
[2019-09-03 06:22] LABS: Phosphorus 3.5 mg/dL (2.3-4.7)
[2019-09-03 06:35] LABS: Anion Gap 12 mmol/L (10-20); BUN (Urea Nitrogen) 20 mg/dL (8.4-25.7); Calc. Creatinine Clearance 37 mL/min (70-130); Calcium 8.3 mg/dL (7.8-10.44); Carbon Dioxide 26 mmol/L (23-31); Chloride 106 mmol/L (98-107); Estimated GFR-MDRD 70; Glucose 89 mg/dL (83-110); Magnesium 1.9 mg/dL (1.6-2.6); Potassium 3.7 mmol/L (3.5-5.1); Sodium 140 mmol/L (136-145)
[2019-09-03] MEDS: Famotidine/PF 20 mg/2ml Vial SLOW IVP SCH (08:27)
[2019-09-03 08:39] LABS: Band 3 % (5-11); Lymphocytes 31 % (21-51); MDiff Complete? YES; Monocytes 6 % (0-10); Neutrophil 60 % (42-75)
[2019-09-03] MEDS ORDERED: Aspirin 81 mg Enteric Coated Tablet PO SCH (09:00)
[2019-09-03] MEDS ORDERED: MD-Gastroview 120 ML BOT ONE (09:50)
--- NOTE | 2019-09-03 10:32 | RAD ---
Small bowel follow-through HISTORY: Obstruction. Abdominal pain. FINDINGS: [place] [facility] radiograph shows mildly distended small bowel loops with gas in the left abdomen. Gas is evident throughout the colon. Contrast material within the urinary bladder from recent CT. 1 hour image after contrast administration through the NG tube shows nondilated contrast-filled small bowel loops throughout the abdomen. Some contrast is apparent within the colon. IMPRESSION : Interval resolution of small bowel obstruction. Rapid small bowel transit.
[2019-09-03] MEDS: Carvedilol 3.125 MG TAB PO SCH ×2 (11:32→21:11)
--- NOTE | 2019-09-03 14:37 | PDOC.HOSPP ---
- Subjective Encounter Date: 09/03/19 Encounter Time: 14:25 Subjective: f/u for SBO and SBFT showing interval resolution. Pt states he feels better overall and no N/V. Multiple loose BM's after SBFT. - Objective Vital Signs & Weight: Vital Signs (12 hours) Temp Pulse Resp BP Pulse Ox 09/03/19 08:00 97.8 F 94 L 09/03/19 04:00 98.2 F 80 18 109/65 96 Weight Weight 116 lb 8 oz Result Diagrams: 09/03/19 05:46 09/03/19 05:46 Radiology Reviewed by me: Yes (SBFT - resolution of SBO) Hospitalist ROS - Medication Medications: Active Medications Generic Name Dose Route Start Last Admin Trade Name Freq PRN Reason Stop Dose Admin Carvedilol 1.5625 mg 09/02/19 21:00 09/03/19 11:32 Coreg PO 1.5625 mg BID DENZEL Administration Sodium Chloride 1,000 mls @ 75 mls/hr 09/02/19 15:45 09/03/19 04:00 Normal Saline 0.9% IV 1,000 mls .[id number] DENZEL Administration Ondansetron HCl 4 mg 09/02/19 15:43 09/03/19 08:17 Zofran IVP 4 mg Q6H PRN Administration Nausea/Vomiting - Exam General Appearance: NAD, awake alert Eye: PERRL, anicteric sclera ENT: normocephalic atraumatic, no oropharyngeal lesions ENT - other findings: L nares with NGT in place Neck: supple, symmetric, no JVD, no thyromegaly Heart: RRR, no gallops, no rubs, normal peripheral pulses Heart - other findings: S1, S2 Respiratory: CTAB, no wheezes, no rales, normal chest expansion Gastrointestinal: soft, non-tender, non-distended, normal bowel sounds, no palpable masses Extremities: no cyanosis, no clubbing, no edema Skin: normal turgor, no lesions Neurological: cranial nerve grossly intact, no new deficit Musculoskeletal: normal tone, generalized weakness Psychiatric: A&O x 3, flat affect Hosp A/P (1) SBO (small bowel obstruction) Code(s): K56.609 - UNSP INTESTNL OBST, UNSP TO PARTIAL VERSUS COMPLETE OBST Status: Acute Plan: Resolving with conservative mgmt and NGT/LIWS, start clear liquids and d/c NGT, monitor with serial abd exams (2) Nausea & vomiting Code(s): R11.2 - NAUSEA WITH VOMITING, UNSPECIFIED Status: Acute Plan: Resolving, Zofran PRN (3) Prostate carcinoma Code(s): C61 - MALIGNANT NEOPLASM OF PROSTATE Status: Acute Plan: Metastatic to bones, continue outpt mgmt (4) Chronic atrial fibrillation Code(s): I48.20 - CHRONIC ATRIAL FIBRILLATION, UNSPECIFIED Status: Acute Plan: s/p Watchman device, continue ASA/Coreg - 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
[2019-09-03] MEDS ORDERED: Chloraseptic Spray 180 ml Bottle PO PRN (23:04)
--- NOTE | 2019-09-04 03:54 | PRG ---
DATE OF SERVICE: 09/03/2019 SUBJECTIVE: The patient was seen this evening during rounds. He was sitting up in bed with no signs of acute distress. Nursing reported no acute events. She also reports that the patient's abdominal pain, nausea, and vomiting have resolved. His NG tube is currently clamped and he is tolerating a clear liquid diet. He did have several bowel movements after his small-bowel follow-through was completed this morning. OBJECTIVE: VITAL SIGNS: Temperature 99.3, pulse 74, respirations 20, oxygen saturation 95% on room air, and blood pressure 111/58. GENERAL: Well-appearing elderly male, sitting up in bed with no signs of acute distress. PULMONARY: Equal chest rise and fall. No signs of acute respiratory distress. CARDIAC: Regular rate and rhythm. GI: Abdomen soft, nontender, and nondistended. EXTREMITIES: 2+ pulses in all extremities. Gross motor and sensation are intact. No significant swelling noted. ASSESSMENT: 1. Small bowel obstruction, resolved. 2. History of chronic obstructive pulmonary disease, prostate cancer with metastasis to bone, coronary artery disease, congestive heart failure, automatic implantable cardioverter defibrillator, pulmonary fibrosis, CHF, Watchman device, aortic stenosis, abdominal aortic aneurysm status post surgery. PLAN: Continue clear liquid diet, advance as tolerated. Discontinue NG tube in the morning if the patient does not vomit again. Ambulate as much as possible. The patient's small bowel obstruction has resolved as resulted by the small-bowel follow-through. Dr. Jauregui and the Trauma Team will sign off at this time. Please re-consult with any new questions or concerns arise. Job ID: [id number] [facility]
[2019-09-04] MEDS ORDERED: Famotidine/PF 20 mg/2ml Vial SLOW IVP SCH (09:00)
[2019-09-04] MEDS: Carvedilol 3.125 MG TAB PO SCH (09:06)
[2019-09-04] MEDS: Sodium Chloride 0.9% 1,000 ML IV SCH (09:15)
[2019-09-04 11:28] VITALS: BP 117/56; TEMP 98.6
--- NOTE | 2019-09-04 12:29 | DIS ---
DATE OF ADMISSION: 09/02/2019 DATE OF DISCHARGE: 09/04/2019 DISCHARGE DIAGNOSES: 1. Small bowel obstruction, resolving with conservative management. 2. Nausea and vomiting secondary to #1, resolved. 3. Prostate carcinoma with bone metastasis. 4. Chronic atrial fibrillation, status post Watchman device. CONSULTATIONS: Dr. Jauregui with General Surgery Service. PERTINENT LABORATORY AND X-RAY FINDINGS: Creatinine ranged between 1.0 to 1.24, estimated GFR ranged between 55 to 70, phosphorus 3.5, magnesium 1.9. LFTs within normal limits. Lipase 14. CBC showed a white blood cell count ranging between 7.[address] of the abdomen and pelvis dated 09/02/2019, showed small bowel dilation with air-fluid levels consistent with small bowel obstruction. Small bowel follow-through dated 09/03/2019, showed interval resolution of small-bowel obstruction. HOSPITAL COURSE: The patient was initially admitted after presenting with increasing abdominal pain, distention with associated nausea and vomiting with CT of the abdomen and pelvis confirming a small-bowel obstruction. The patient underwent general management including IV Zofran, IV fluids in addition to Protonix and Bentyl. The patient also underwent NG-tube placement with low intermittent wall suctioning with resolution of the small bowel obstruction with conservative management. The patient was evaluated by General Surgery Service, who recommended ongoing NG tube with decompression and repeat small-bowel follow-through confirmed resolution. The patient was advanced from clear liquids to soft mechanical diet, tolerating without recurrent symptoms. Overall, the patient did remain clinically stable during the hospital course. I have examined the patient at the time of discharge and discussed followup instructions. The patient verbalized understanding and agreement, ready for discharge 09/04/2019. DISCHARGE MEDICATIONS: 1. Lipitor 80 mg p.o. q.a.m. 2. Calcitriol 0.25 mcg p.o. daily. 3. Carvedilol 3.125 mg half a tablet p.o. b.i.d. 4. Xtandi 160 mg p.o. daily. 5. Pepcid 20 mg p.o. daily. 6. Ferrous sulfate 325 mg p.o. b.i.d. 7. Lupron 11.25 mg intramuscularly q.180 days. 8. Klor-Con 10 10 mEq p.o. b.i.d. 9. Flomax 0.4 mg p.o. daily. 10. Aspirin 81 mg p.o. daily. 11. Zetia 10 mg p.o. daily. 12. Lasix 40 mg p.o. b.i.d. FOLLOWUP: The patient to follow up with his primary care provider, Dr. Clark Rutledge within 7 days of discharge. CONDITION ON DISCHARGE: Stable. ACTIVITY: Ad-colton. DIET: Heart healthy. CODE STATUS: Full. DISPOSITION: Home on 09/04/2019. TIME SPENT: Total time preparing and coordinating discharge, 33 minutes. Job ID: [id number]
== END 2019-09-04 14:19 | disposition home or self-care (01) | DRG 389 ==
LOC: ERS 09:30 → T4-A 11:54
PROVIDERS: ADMIT Family Medicine; ATTEND Family Medicine
DX: K56.609 Unspecified intestinal obstruction, unspecified as to partial versus complete obstruction (principal); C79.51 Secondary malignant neoplasm of bone; I48.20 Chronic atrial fibrillation, unspecified; I50.22 Chronic systolic (congestive) heart failure; C61 Malignant neoplasm of prostate; I25.10 Atherosclerotic heart disease of native coronary artery without angina pectoris; J44.9 Chronic obstructive pulmonary disease, unspecified; I25.5 Ischemic cardiomyopathy; J84.10 Pulmonary fibrosis, unspecified; I35.0 Nonrheumatic aortic (valve) stenosis; I25.2 Old myocardial infarction; Z98.49 Cataract extraction status, unspecified eye; Z95.810 Presence of automatic (implantable) cardiac defibrillator; Z79.899 Other long term (current) drug therapy; Z95.1 Presence of aortocoronary bypass graft; Z79.82 Long term (current) use of aspirin; Z88.1 Allergy status to other antibiotic agents; Z87.11 Personal history of peptic ulcer disease
CPT/HCPCS: 36415; 71045; 74177; 74250; 80048; 80053; 83690; 83735; 84100; 85007; 85025; 85027; 96361; 96374; 96375; C9113; J0500; J2405; Q9963; S0028